=== PATIENT | male | born 1970 | race Caucasian/White ===

== ENCOUNTER 2024-10-11 03:15 | Inpatient (IN) ==
[2024-10-11 03:49] LABS: Hematocrit (blood only) 46.1 % (42.0-52.0); Hemoglobin 15.4 g/dl (14.0-18.0); Immature Granulocytes # (auto) 0.05 K/uL (0.01-0.20); Immature Granulocytes % (auto) 0.4 %; Mean Corpuscular Hemoglobin 32.4 pg (25.0-34.0); Mean Corpuscular Volume 96.8 fL (80.0-100.0); Platelet Count 424 K/uL (130-400); RDW Standard Deviation 44.7 fL (36.4-46.3); Red Blood Count 4.76 M/uL (4.70-6.10); White Blood Count 12.90 K/ul (4.8-10.8)
[2024-10-11] MEDS: OPTIRAY 320 100ml IV ONE (03:49)
--- NOTE | 2024-10-11 03:58 | Emergency Department Note ---
Impression & Plan Cholelithiasis with biliary obstruction, Cholecystitis ED Provider Note NAME: SERVANDO TOVAR AGE: 53 SEX: M : 1970 ARRIVES VIA: Walk-In INFORMANT: Patient, ED PROVIDER(S): Apollo Thompson MD CHIEF COMPLAINT: Epigastric/right upper quadrant pain HPI: This is a 53-year-old male presents for epigastric/right upper quadrant abdominal pain. Patient notes that this has been going on for about 1 week. He went his primary care doctor who ordered an ultrasound. This revealed hepatic steatosis without signs of cholecystitis. There was a distended gallbladder without signs of gallbladder wall thickening. Patient has had slight nausea and chills over the last 1 to 2 days. He reports no shortness of breath or chest pain. No diarrhea, urinary symptoms. Patient does note that symptoms are worse with food. ROS: See above HPI for pertinent positives & negatives. A total of 10 systems reviewed and were otherwise negative. PAST MEDICAL HISTORY: See Below PAST SURGICAL HISTORY: See Below FAMILY HISTORY: See Below SOCIAL HISTORY: See Below HOME MEDICATIONS: See Below ALLERGIES: See Below VITALS: See Below PHYSICAL EXAMINATION: General: resting comfortably in no acute distress Head: Normocephalic and atraumatic Eyes: Normal inspection, extraocular muscles intact Ear, nose, throat: Normal external exam Neck: Normal range of motion Respiratory: lungs clear to auscultation bilaterally Cardiovascular: Regular rate/rhythm, no murmur GI: soft, nontender, no guarding or rebound, negative Sylvester sign Extremities: nontender, moves all extremities Neuro: The patient awake and alert, appropriately conversive, no focal deficits, symmetric faces Skin: Warm, dry, and intact MEDICAL DECISION MAKING: This is a 53-year-old male present for epigastric right quadrant abdominal pain. Will do screening blood work. Patient already had negative ultrasound a few days ago. Will progress to CT Abdo/pelvis to assess further. Consider gastroenteritis, appendicitis, cholecystitis, diverticulitis. Overall patient was clinically well with reassuring vital signs and a nontender abdomen. - Leukocytosis to 12.9 noted. Otherwise there is significant abnormalities including elevated bilirubin to 5.6, significant transaminitis and elevated alk phos. -CT imaging shows signs of acute cholecystitis as well as minimal intrahepatic and extrahepatic biliary dilation as well as a possible tiny calcific focus seen in the pancreatic head along the CBD. Concern for choledocholithiasis -Patient started on Zosyn and kept n.p.o. -In context with patient's blood work, do have concern for choledocholithiasis. Discussed care with GI physician, Dr. John who states that oncoming GI physician, Dr. David, can do ERCP and patient could stay in the hospital here. Discussed with Dr. Carson, general surgery he was also comfortable with the admission here. - Discussed care with Dr. Palmer who for admission Differential diagnosis: See above Independent History obtained from: Diagnostics interpreted by me: ECG: None Cardiac Monitoring: An order was placed for continuous cardiac monitoring. The monitor shows a rate of 75 with sinus rhythm. Past Med/Surg History Problem List (Updated 10/11/24 @ 15:17 by Apollo Thompson MD) Cholelithiasis with biliary obstruction (Acute) Cholecystitis (Acute) Medical History (Updated 10/11/24 @ 15:17 by Apollo Thompson MD) Encounter for pre-operative examination Sleep apnea treated with continuous positive airway pressure (CPAP) Hypertension Anxiety and depression Surgical History H/O colonoscopy with polypectomy Social History Smoking Status: Former smoker Tobacco Type: Cigarettes Hx Alcohol Use: Yes Hx Substance Use: No Preferred Language: Malaysian Communication Ability: Effective Nursing Scheduler Required: No Beliefs That Will Affect Care: None Current Living Situation: Spouse Feels Safe at Home: Yes Allergies Allergies Allergy/AdvReac Type Severity Reaction Status Date / Time No Known Allergies Allergy Verified 10/11/24 13:32 Home Meds Home Medications Medication Instructions Recorded Confirmed atenolol 25 mg tablet 25 mg PO DAILY 10/11/24 10/11/24 sertraline 50 mg tablet (Zoloft) 50 mg PO DAILY 10/11/24 10/11/24 Results & Data (ED) Vital Signs Vital Signs - 24 hr 10/11/24 03:18 10/11/24 03:25 10/11/24 03:29 Temperature 36.8 C Temperature Source Temporal Artery Scan Pulse Rate 110 H 105 H Pulse Rate [Right Finger] Pulse Rhythm Regular Pulse Rhythm [Right Finger] Pulse Strength Normal Respiratory Rate 20 Respiratory Effort / Characteristics Non-Labored Spontaneous Respiratory Depth Normal Respiratory Pattern Regular Blood Pressure 133/87 Blood Pressure [Right Arm] Blood Pressure Mean 102 Blood Pressure Mean [Right Arm] Blood Pressure Position Sitting Blood Pressure Position [Right Arm] Pulse Oximetry 96 95 Oxygen Delivery Method Room Air Room Air Sepsis Recent Fever Within 48 Hours No Sepsis New/Unexplained Change in Mental Status No Sepsis Action Taken by Nursing No Action Required 10/11/24 03:52 10/11/24 05:16 10/11/24 06:39 Temperature Temperature Source Pulse Rate Pulse Rate [Right Finger] 88 71 70 Pulse Rhythm Pulse Rhythm [Right Finger] Regular Pulse Strength Respiratory Rate 16 18 18 Respiratory Effort / Characteristics Non-Labored Respiratory Depth Normal Respiratory Pattern Regular Blood Pressure Blood Pressure [Right Arm] 154/92 H 142/83 H 131/86 Blood Pressure Mean Blood Pressure Mean [Right Arm] 112 102 101 Blood Pressure Position Blood Pressure Position [Right Arm] Pulse Oximetry 95 95 95 Oxygen Delivery Method Room Air Room Air Room Air Sepsis Recent Fever Within 48 Hours Sepsis New/Unexplained Change in Mental Status Sepsis Action Taken by Nursing 10/11/24 08:27 Temperature 36.9 C Temperature Source Oral Pulse Rate Pulse Rate [Right Finger] 78 Pulse Rhythm Pulse Rhythm [Right Finger] Pulse Strength Respiratory Rate 20 Respiratory Effort / Characteristics Non-Labored Respiratory Depth Normal Respiratory Pattern Regular Blood Pressure Blood Pressure [Right Arm] 163/94 H Blood Pressure Mean Blood Pressure Mean [Right Arm] 117 Blood Pressure Position Blood Pressure Position [Right Arm] Sitting Pulse Oximetry 95 Oxygen Delivery Method Room Air Sepsis Recent Fever Within 48 Hours Sepsis New/Unexplained Change in Mental Status Sepsis Action Taken by Nursing Laboratory Data 10/11/24 03:25 10/11/24 03:25 Lab Results 10/11/24 10/11/24 Range/Units 03:25 03:38 WBC 12.90 H (4.8-10.8) K/ul RBC 4.76 (4.70-6.10) M/uL Hgb 15.4 (14.0-18.0) g/dl POC Hgb 15.3 (14.0-18.0) g/dl Hct 46.1 (42.0-52.0) % POC Hct 45 (42-52) % MCV 96.8 (80.0-100.0) fL MCH 32.4 (25.0-34.0) pg MCHC 33.4 (32.0-36.0) g/dL RDW Std Deviation 44.7 (36.4-46.3) fL RDW Coeff of Faustino 12.5 (11.5-14.5) % Plt Count 424 H (130-400) K/uL MPV 8.7 L (9.4-12.4) fL Immature Gran % (Auto) 0.4 % Neut % (Auto) 74.8 % Lymph % (Auto) 12.1 % Roberts % (Auto) 12.0 % Eos % (Auto) 0.2 % Baso % (Auto) 0.5 % Neut # (Auto) 9.65 H (1.40-6.50) K/uL Lymph # (Auto) 1.56 (1.20-3.40) K/uL Roberts # (Auto) 1.55 H (0.11-0.59) K/uL Eos # (Auto) 0.02 (0.00-0.50) K/uL Baso # (Auto) 0.07 (0.00-0.20) K/uL Immature Gran # (Auto) 0.05 (0.01-0.20) K/uL POC Sodium 140 (135-144) mmol/L Sodium 139 (136-145) mmol/L POC Potassium 3.3 (3.3-5.0) mmol/L Potassium 3.4 L (3.5-5.1) mmol/L POC Chloride 104 (101-112) mmol/L Chloride 101 (98-107) mmol/L Carbon Dioxide 27 (21-32) mmol/L POC Total CO2 23 L (24-31) mmol/L Anion Gap 11 (3-11) POC Anion Gap 17.0 (16-25) mmol/L POC BUN 4 L (7-18) mg/dl BUN 6 (6-23) mg/dl Creatinine 1.03 (0.6-1.4) mg/dl POC Creatinine 1.0 (0.6-1.3) mg/dl Est Cr Clr Drug Dosing 101.0 ml/min eGFR 86.32 BUN/Creatinine Ratio 5.8 L (10-20) Glucose 123 H (70-99(Fasting)) mg/dl POC Glucose (other) 123 H (70-99) mg/dl Calcium 9.4 (8.6-10.3) mg/dl POC Ioniz Calcium Rachana 1.14 (1.12-1.32) mmol/l Total Bilirubin 5.6 H (0.2-1.0) mg/dl Direct Bilirubin 3.8 H (0-0.2) mg/dl AST 211 H (13-39) U/L ALT 322 H (7-52) U/L Alkaline Phosphatase 204 H (34-104) U/L Troponin I High Sens 4.1 (0-20) pg/ml Total Protein 8.7 H (6.0-8.3) gm/dl Albumin 4.1 (3.4-5.0) gm/dl Globulin 4.6 H (2.5-4.0) gm/dl Albumin/Globulin Ratio 0.9 (0.9-2) Lipase 27 (11-82) U/L Administered Medications Atenolol (Atenolol 25 Mg Tablet) 25 mg PO DAILY [facility] Stop: 11/10/24 08:59 Last Admin: 10/11/24 09:41 Dose: 25 mg Documented By: driss Hydromorphone HCl (Hydromorphone Inj 0.5 Mg/0.5 Ml Syr) 0.5 mg IV Q4H PRN PRN Reason: Severe Pain (Scale 7, 8, 9,10) Stop: 10/25/24 08:59 Last Admin: 10/11/24 12:22 Dose: 0.5 mg Documented By: EMELINA Piperacillin Sod/Tazobactam Sod (Zosyn) 4.5 gm in 100 mls @ 25 mls/hr IV Q8H [facility]; Protocol Stop: 10/13/24 04:29 Last Admin: 10/11/24 12:15 Dose: 25 mls/hr Documented By: Infusion: 10/11/24 09:10 Dose: Infused Documented By: Admin: 10/11/24 05:10 Dose: 25 mls/hr Documented By: MARVA Sodium Chloride (Nss) 1,000 mls @ 125 mls/hr IV .Q8H [facility] Stop: 10/14/24 08:59 Last Admin: 10/11/24 09:00 Dose: 125 mls/hr Documented By: MAEVE Lactated Ringer's (Lr) 1,000 mls @ 15 mls/hr IV .Q24H KRANTHI Stop: 10/14/24 13:59 Last Infusion: 10/11/24 14:06 Dose: Infused Documented By: Admin: 10/11/24 13:55 Dose: 15 mls/hr Documented By: MG Sertraline HCl (Sertraline Hcl 50 Mg Tablet) 50 mg PO DAILY KRANTHI Stop: 11/10/24 08:59 Last Admin: 10/11/24 09:41 Dose: 50 mg Documented By: cad Discontinued Medications Potassium Chloride (K Mazin / Wtr) 10 meq in 100 mls @ 100 mls/hr IV Q1H KRANTHI Stop: 10/11/24 09:14 Last Infusion: 10/11/24 11:59 Dose: Infused Documented By: Admin: 10/11/24 10:16 Dose: 100 mls/hr Documented By: Infusion: 10/11/24 10:00 Dose: Infused Documented By: Admin: 10/11/24 09:00 Dose: 100 mls/hr Documented By: Infusion: 10/11/24 08:47 Dose: Infused Documented By: Admin: 10/11/24 07:47 Dose: 100 mls/hr Documented By: driss Indomethacin (Indomethacin 50 Mg Supp) 100 mg UT ONCE ONE Stop: 10/11/24 12:31 Last Admin: 10/11/24 14:28 Dose: 100 mg Documented By: DEBBIE Ioversol (Optiray 320 100ml) 100 ml IV ONCE ONE Stop: 10/11/24 03:50 Last Admin: 10/11/24 03:49 Dose: 93 ml Documented By: JOHNATHON Imaging Data Radiologist's Impression: Abdomen/Pelvis CT 10/11/24 03:25 EXAM: CT abd pelvis IV con only CLINICAL HISTORY: RUQ pain, cholecystitis vs appendicits TECHNIQUE: Contiguous axial images were obtained from the level of the diaphragm to the pubic symphysis with intravenous contrast. Coronal and sagittal reconstructions were likewise performed and indicated to increase the sensitivity for detecting clinically relevant pathology. If IV contrast material had not been administered, the likelihood of detecting abnormalities relevant to the patient's condition would have been substantially decreased. CT scan was performed according to ALARA (as low as reasonable achievable). COMPARISON: None FINDINGS: Few atelectatic bands are noted involving bilateral lung bases. The liver is normal in size and attenuation. No focal liver lesions are seen. There is minimal intrahepatic and extrahepatic biliary ductal dilatation. Hepatic vasculature is patent. The gallbladder is distended shows thickened edematous gallbladder wall (wall thickness measures 6-7 mm) and pericholecystic fat stranding. No obvious radio-opaque gallstones- ultrasound correlation is suggested. Tiny calcific focus seen in pancreatic head along common bile duct. The spleen, pancreas, and adrenal glands are unremarkable. The kidneys are normal in size and attenuation. There is no hydronephrosis or perinephric fat stranding. No renal calculi or renal masses are identified. The ureters are normal in caliber and no ureteral calculi are seen. The bladder is normal in contour. Pelvic viscera are unremarkable. No focal or diffuse bowel wall thickening or evidence of bowel obstruction is identified. The appendix is visualized in the right lower quadrant and appears within normal limits. Abdominal and pelvic vasculature is patent. No adenopathy or fluid collections are seen. No aggressive appearing osseous lesions are identified. IMPRESSION: 1. Gallbladder is distended shows thickened edematous gallbladder wall (wall thickness measures 6-7 mm) and pericholecystic fat stranding- suggestive of acute cholecystitis. Advised clinical correlation and ultrasound for further evaluation. 2. There is minimal intrahepatic and extrahepatic biliary ductal dilatation. Tiny calcific focus seen in pancreatic head along common bile duct. Advised MRCP correlation to confirm/rule out choledocholithiasis. 3. Hepatic steatosis Electronically signed by Neo Zelaya 10-11-2024 04:18 AM Discharge Plan Visit Data Chief Complaint: Abdominal Pain Stated Complaint: ABD AND BACK PAIN ED Provider: Apollo Thompson Discharge Problem: Cholelithiasis with biliary obstruction, Cholecystitis Patient Disposition: Admitted As Inpatient Condition: Fair Discharge Instructions Interventions: ED Discharge Assessment Last Done: 10/11/24 07:52
[2024-10-11 04:08] LABS: Alanine Aminotransferase 322.0 U/L (7-52); Albumin Globulin Ratio 0.9 (0.9-2); Alkaline Phosphatase 204.0 U/L (34-104); Anion Gap 11.0 (3-11); Bilirubin,Total 5.6 mg/dl (0.2-1.0); Blood Urea Nitrogen 6.0 mg/dl (6-23); Calcium 9.4 mg/dl (8.6-10.3); Carbon Dioxide 27.0 mmol/L (21-32); Chloride 101.0 mmol/L (98-107); Creatinine Clr Calc Pharmacy 101.0 ml/min; Globulin 4.6 gm/dl (2.5-4.0); Glucose 123.0 mg/dl (70-99(Fasting)); Lipase 27.0 U/L (11-82); Potassium 3.4 mmol/L (3.5-5.1); Sodium 139.0 mmol/L (136-145); Total Protein 8.7 gm/dl (6.0-8.3)
--- NOTE | 2024-10-11 04:18 | CT Scan Report ---
EXAM: CT abd pelvis IV con only CLINICAL HISTORY: RUQ pain, cholecystitis vs appendicits TECHNIQUE: Contiguous axial images were obtained from the level of the diaphragm to the pubic symphysis with intravenous contrast. Coronal and sagittal reconstructions were likewise performed and indicated to increase the sensitivity for detecting clinically relevant pathology. If IV contrast material had not been administered, the likelihood of detecting abnormalities relevant to the patient's condition would have been substantially decreased. CT scan was performed according to ALARA (as low as reasonable achievable). COMPARISON: None FINDINGS: Few atelectatic bands are noted involving bilateral lung bases. The liver is normal in size and attenuation. No focal liver lesions are seen. There is minimal intrahepatic and extrahepatic biliary ductal dilatation. Hepatic vasculature is patent. The gallbladder is distended shows thickened edematous gallbladder wall (wall thickness measures 6-7 mm) and pericholecystic fat stranding. No obvious radio-opaque gallstones- ultrasound correlation is suggested. Tiny calcific focus seen in pancreatic head along common bile duct. The spleen, pancreas, and adrenal glands are unremarkable. The kidneys are normal in size and attenuation. There is no hydronephrosis or perinephric fat stranding. No renal calculi or renal masses are identified. The ureters are normal in caliber and no ureteral calculi are seen. The bladder is normal in contour. Pelvic viscera are unremarkable. No focal or diffuse bowel wall thickening or evidence of bowel obstruction is identified. The appendix is visualized in the right lower quadrant and appears within normal limits. Abdominal and pelvic vasculature is patent. No adenopathy or fluid collections are seen. No aggressive appearing osseous lesions are identified. IMPRESSION: 1. Gallbladder is distended shows thickened edematous gallbladder wall (wall thickness measures 6-7 mm) and pericholecystic fat stranding- suggestive of acute cholecystitis. Advised clinical correlation and ultrasound for further evaluation. 2. There is minimal intrahepatic and extrahepatic biliary ductal dilatation. Tiny calcific focus seen in pancreatic head along common bile duct. Advised MRCP correlation to confirm/rule out choledocholithiasis. 3. Hepatic steatosis Electronically signed by Neo Zelaya 10-11-2024 04:18 AM
[2024-10-11] MEDS: PIPERACILLIN/TAZOBACTAM 4.5 GM/100 ML BAG IV SCH (05:10)
[2024-10-11 06:26] LABS: Appearance Urine Clear (Clear); Glucose Urine UA Negative (Negative)
[2024-10-11 06:40] LABS: Epithelial Cell Urine 0-2 /hpf (0-2)
[2024-10-11] MEDS: POTASSIUM CHLORIDE / WTR 10 MEQ/100 ML PLCT IV SCH (07:47)
--- NOTE | 2024-10-11 08:01 | History & Physical Report ---
Date of Service October 11, 2024 Assessment & Plan (1) Cholecystitis: Plan: 53-year-old male unassigned patient with past medical history significant for hypertension, depression comes with abdominal pain. Patient states having epigastric and right upper quadrant abdominal pain going on for last couple of days. Pain is radiating to the back. Associate with nausea. No vomiting. Had some loose stools. Denies any blood in the stools or black stools. Micturating okay. Thinks he had fevers. Denies any chest pain. Some shortness of breath when the pain is severe. Denies any headache. No runny nose or sore throat or cough. Resting comfortably and hemodynamics are okay currently. Cholecystitis Presents abdominal pain and elevated LFTs Total bili 5.6. Albumin 3.8. AST 211. ALT 322. Alkaline phos was 204 CT abdomen pelvis showing distended gallbladder and pericholecystic fat stranding suggestive of acute cholecystitis. Minimal intrahepatic and extrahepatic biliary ductal dilatation. Tiny calcific focus in pancreatic head along common bile duct. Advised MRCP to confirm or rule out choledocholithiasis N.p.o., IV fluids, IV Zosyn IV Dilaudid as needed GI and surgery consult for further recommendation Hypertension Continue atenolol Depression Continue Zoloft DVT prophylaxis SCDs Disposition Medical floor Full code. History of Present Illness Chief Complaint: Abdominal pain Primary Care Provider: Ellie Velazquez DO 53-year-old male unassigned patient with past medical history significant for hypertension, depression comes with abdominal pain. Patient states having epigastric and right upper quadrant abdominal pain going on for last couple of days. Pain is radiating to the back. Associate with nausea. No vomiting. Had some loose stools. Denies any blood in the stools or black stools. Micturating okay. Thinks he had fevers. Denies any chest pain. Some shortness of breath when the pain is severe. Denies any headache. No runny nose or sore throat or cough. Resting comfortably and hemodynamics are okay currently. Past medical history. As mentioned above. Past surgical history. Denies any surgeries. Social history. No smoking. No alcohol use. No drug use. Family history. Denies any family history. Home Medications Medication Instructions Recorded Confirmed Type atenolol 25 mg tablet 25 mg PO DAILY 10/11/24 10/11/24 History sertraline 50 mg tablet (Zoloft) 50 mg PO DAILY 10/11/24 10/11/24 History Past Med/Surg History Problem List (Updated 10/11/24 @ 07:59 by Adolfo Palmer MD) Cholecystitis Social History Smoking Status: Never smoker Tobacco Type: Cigarettes Feels Safe at Home: Yes Review of Systems Review of Systems: All systems reviewed & are unremarkable except as noted in HPI & below Physical Exam Physical Exam: General- Not in distress Head- atraumatic Eyes- PERRL. ENT- oropharynx clear Neck- supple, no JVD. Lungs- clear to auscultation no wheezing or crackles Heart- regular rhythm; no murmur, no gallop. Abdomen- normal bowel sounds, soft, epigastric and RUQ tenderness present, no guarding or rigidity, no distension Extremities- no pretibial edema, no erythema seen Neuro- alert, oriented PERRL, EOMI; no facial palsy; no dysarthria; moves extremities Results & Data Results & Data Vital Signs (Past 12 Hours) Vital Signs Temp Pulse Pulse Resp BP BP Pulse Ox 10/11/24 06:39 70 18 131/86 95 10/11/24 05:16 71 18 142/83 H 95 10/11/24 03:52 88 16 154/92 H 95 10/11/24 03:29 105 H 10/11/24 03:25 95 10/11/24 03:18 36.8 C 110 H 20 133/87 96 O2 Del Method 10/11/24 06:39 Room Air 10/11/24 05:16 Room Air 10/11/24 03:52 Room Air 10/11/24 03:29 10/11/24 03:25 Room Air 10/11/24 03:18 Room Air Diagnostic Findings Laboratory Results WBC 12.90 K/ul (4.8-10.8) H 10/11/24 03:25 RBC 4.76 M/uL (4.70-6.10) 10/11/24 03:25 Hgb 15.4 g/dl (14.0-18.0) 10/11/24 03:25 POC Hgb 15.3 g/dl (14.0-18.0) 10/11/24 03:38 Hct 46.1 % (42.0-52.0) 10/11/24 03:25 POC Hct 45 % (42-52) 10/11/24 03:38 MCV 96.8 fL (80.0-100.0) 10/11/24 03:25 MCH 32.4 pg (25.0-34.0) 10/11/24 03:25 MCHC 33.4 g/dL (32.0-36.0) 10/11/24 03:25 RDW Std Deviation 44.7 fL (36.4-46.3) 10/11/24 03:25 RDW Coeff of Faustino 12.5 % (11.5-14.5) 10/11/24 03:25 Plt Count 424 K/uL (130-400) H 10/11/24 03:25 MPV 8.7 fL (9.4-12.4) L 10/11/24 03:25 Immature Gran % (Auto) 0.4 % 10/11/24 03:25 Neut % (Auto) 74.8 % 10/11/24 03:25 Lymph % (Auto) 12.1 % 10/11/24 03:25 [place] % (Auto) 12.0 % 10/11/24 03:25 Eos % (Auto) 0.2 % 10/11/24 03:25 Baso % (Auto) 0.5 % 10/11/24 03:25 Neut # (Auto) 9.65 K/uL (1.40-6.50) H 10/11/24 03:25 Lymph # (Auto) 1.56 K/uL (1.20-3.40) 10/11/24 03:25 [place] # (Auto) 1.55 K/uL (0.11-0.59) H 10/11/24 03:25 Eos # (Auto) 0.02 K/uL (0.00-0.50) 10/11/24 03:25 Baso # (Auto) 0.07 K/uL (0.00-0.20) 10/11/24 03:25 Immature Gran # (Auto) 0.05 K/uL (0.01-0.20) 10/11/24 03:25 POC Sodium 140 mmol/L (135-144) 10/11/24 03:38 Sodium 139 mmol/L (136-145) 10/11/24 03:25 POC Potassium 3.3 mmol/L (3.3-5.0) 10/11/24 03:38 Potassium 3.4 mmol/L (3.5-5.1) L 10/11/24 03:25 POC Chloride 104 mmol/L (101-112) 10/11/24 03:38 Chloride 101 mmol/L (98-107) 10/11/24 03:25 Carbon Dioxide 27 mmol/L (21-32) 10/11/24 03:25 POC Total CO2 23 mmol/L (24-31) L 10/11/24 03:38 Anion Gap 11 (3-11) 10/11/24 03:25 POC Anion Gap 17.0 mmol/L (16-25) 10/11/24 03:38 POC BUN 4 mg/dl (7-18) L 10/11/24 03:38 BUN 6 mg/dl (6-23) 10/11/24 03:25 Creatinine 1.03 mg/dl (0.6-1.4) 10/11/24 03:25 POC Creatinine 1.0 mg/dl (0.6-1.3) 10/11/24 03:38 Est Cr Clr Drug Dosing 101.0 ml/min 10/11/24 03:25 eGFR 86.32 10/11/24 03:25 BUN/Creatinine Ratio 5.8 (10-20) L 10/11/24 03:25 Glucose 123 mg/dl (70-99(Fasting)) H 10/11/24 03:25 POC Glucose (other) 123 mg/dl (70-99) H 10/11/24 03:38 Calcium 9.4 mg/dl (8.6-10.3) 10/11/24 03:25 POC Ioniz Calcium Rachana 1.14 mmol/l (1.12-1.32) 10/11/24 03:38 Total Bilirubin 5.6 mg/dl (0.2-1.0) H 10/11/24 03:25 Direct Bilirubin 3.8 mg/dl (0-0.2) H 10/11/24 03:25 AST 211 U/L (13-39) H 10/11/24 03:25 ALT 322 U/L (7-52) H 08/20/25 03:25 Alkaline Phosphatase 204 U/L (34-104) H 10/11/24 03:25 Troponin I High Sens 4.1 pg/ml (0-20) 10/11/24 03:25 Total Protein 8.7 gm/dl (6.0-8.3) H 10/11/24 03:25 Albumin 4.1 gm/dl (3.4-5.0) 10/11/24 03:25 Globulin 4.6 gm/dl (2.5-4.0) H 10/11/24 03:25 Albumin/Globulin Ratio 0.9 (0.9-2) 10/11/24 03:25 Lipase 27 U/L (11-82) 10/11/24 03:25 Urine Color Yellow 10/11/24 Unknown Urine Appearance Clear (Clear) 10/11/24 Unknown Urine pH 7.0 (4.5-7.5) 10/11/24 Unknown Ur Specific [place] 1.010 (1.000-1.030) 10/11/24 Unknown Urine Protein 1+ (Negative) H 10/11/24 Unknown Urine Glucose (UA) Negative (Negative) 10/11/24 Unknown Urine Ketones Negative (Negative) 10/11/24 Unknown Urine Blood Trace-intact (Negative) H 10/11/24 Unknown Urine Nitrite Negative (Negative) 10/11/24 Unknown Urine Bilirubin 2+ (Negative) H 10/11/24 Unknown Urine Urobilinogen Negative (Negative) 10/11/24 Unknown Ur Leukocyte Esterase Negative (Negative) 10/11/24 Unknown Urine RBC 0-2 /hpf (0-2) 10/11/24 Unknown Urine WBC 0-5 /hpf (0-5) 10/11/24 Unknown Ur Epithelial Cells 0-2 /hpf (0-2) 10/11/24 Unknown Urine Bacteria None Seen (None Seen) 10/11/24 Unknown Urine Mucus Present (None Prsent) A 10/11/24 Unknown Urine Comment 10/11/24 Unknown Impressions Abdomen/Pelvis CT 10/11/24 03:25 EXAM: CT abd pelvis IV con only CLINICAL HISTORY: RUQ pain, cholecystitis vs appendicits TECHNIQUE: Contiguous axial images were obtained from the level of the diaphragm to the pubic symphysis with intravenous contrast. Coronal and sagittal reconstructions were likewise performed and indicated to increase the sensitivity for detecting clinically relevant pathology. If IV contrast material had not been administered, the likelihood of detecting abnormalities relevant to the patient's condition would have been substantially decreased. CT scan was performed according to ALARA (as low as reasonable achievable). COMPARISON: None FINDINGS: Few atelectatic bands are noted involving bilateral lung bases. The liver is normal in size and attenuation. No focal liver lesions are seen. There is minimal intrahepatic and extrahepatic biliary ductal dilatation. Hepatic vasculature is patent. The gallbladder is distended shows thickened edematous gallbladder wall (wall thickness measures 6-7 mm) and pericholecystic fat stranding. No obvious radio-opaque gallstones- ultrasound correlation is suggested. Tiny calcific focus seen in pancreatic head along common bile duct. The spleen, pancreas, and adrenal glands are unremarkable. The kidneys are normal in size and attenuation. There is no hydronephrosis or perinephric fat stranding. No renal calculi or renal masses are identified. The ureters are normal in caliber and no ureteral calculi are seen. The bladder is normal in contour. Pelvic viscera are unremarkable. No focal or diffuse bowel wall thickening or evidence of bowel obstruction is identified. The appendix is visualized in the right lower quadrant and appears within normal limits. Abdominal and pelvic vasculature is patent. No adenopathy or fluid collections are seen. No aggressive appearing osseous lesions are identified. IMPRESSION: 1. Gallbladder is distended shows thickened edematous gallbladder wall (wall thickness measures 6-7 mm) and pericholecystic fat stranding- suggestive of acute cholecystitis. Advised clinical correlation and ultrasound for further evaluation. 2. There is minimal intrahepatic and extrahepatic biliary ductal dilatation. Tiny calcific focus seen in pancreatic head along common bile duct. Advised MRCP correlation to confirm/rule out choledocholithiasis. 3. Hepatic steatosis Electronically signed by Neo Zelaya 10-11-2024 04:18 AM Code Status & VTE Plan VTE Prophylaxis Plan VTE Prophylaxis will be ordered: Yes
--- NOTE | 2024-10-11 08:47 | Surgery Consultation ---
Date of Consultation October 11, 2024 Assessment & Plan (1) Cholelithiasis with biliary obstruction: IVF IV bax GI consult for ERCP with CBD stone and elevated LFTs eventual lap rosie History of Present Illness Attending Physician: Damian Delacruz MD History of Present Illness This is a 53YO with epigastric and right upper quadrant abdominal pain that radiates to his back. It began a few days ago but is improved in the emergency department. He has had nausea but no vomiting. H has had subjective fevers and some loose stools. CT scan shows signs of cholecystitis and CBD stones. LFTs elevated. Home Medications Medication Instructions Recorded Confirmed Type atenolol 25 mg tablet 25 mg PO DAILY 10/11/24 10/11/24 History sertraline 50 mg tablet (Zoloft) 50 mg PO DAILY 10/11/24 10/11/24 History Patient History Social History Smoking Status: Never smoker Tobacco Type: Cigarettes Feels Safe at Home: Yes Review of Systems Constitutional: + fever and + anorexia; no chills Eyes: no problem reported Ear, Nose, Mouth, Throat: no problem reported Respiratory: + dyspnea; no cough Cardiovascular: no chest pain Gastrointestinal: + abdominal pain, + nausea and + change in bowel habits; no vomiting Genitourinary: no dysuria Musculoskeletal: + back pain Integumentary: no problem reported Neurologic: no localized weakness and no generalized weakness Psychiatric: no behavioral changes Hematologic / Lymphatic: no easy bleeding and no easy bruising Physical Exam Constitutional: WD/WN, vitals as above Eyes: + scleral abnormality ENMT: external ear and nose normal, oropharynx normal Neck: trachea midline Respiratory: normal respiratory effort, lungs clear to auscultation Cardiovascular: RRR, no murmur, no edema Gastrointestinal (Abdomen): Inspection/Auscultation: abdomen normal to inspection and normal bowel sounds; abdomen not distended P ercussion/Palpation: + abdomen tender and abdomen soft; no guarding and abdomen not rigid Musculoskeletal: Head/Neck/Chest: normocephalic and head atraumatic Skin: no rashes, warm and dry Psychiatric: Orientation: alert Results & Data Vital Signs (Past 12 Hours) Vital Signs Temp Pulse Pulse Resp BP BP Pulse Ox 10/11/24 08:27 78 20 95 10/11/24 06:39 70 18 131/86 95 10/11/24 05:16 71 18 142/83 H 95 10/11/24 03:52 88 16 154/92 H 95 10/11/24 03:29 105 H 10/11/24 03:25 95 10/11/24 03:18 36.8 C 110 H 20 133/87 96 O2 Del Method 10/11/24 08:27 Room Air 10/11/24 06:39 Room Air 10/11/24 05:16 Room Air 10/11/24 03:52 Room Air 10/11/24 03:29 10/11/24 03:25 Room Air 10/11/24 03:18 Room Air Diagnostic Findings EXAM: CT abd pelvis IV con only CLINICAL HISTORY: RUQ pain, cholecystitis vs appendicits TECHNIQUE: Contiguous axial images were obtained from the level of the diaphragm to the pubic symphysis with intravenous contrast. Coronal and sagittal reconstructions were likewise performed and indicated to increase the sensitivity for detecting clinically relevant pathology. If IV contrast material had not been administered, the likelihood of detecting abnormalities relevant to the patient's condition would have been substantially decreased. CT scan was performed according to ALARA (as low as reasonable achievable). COMPARISON: None FINDINGS: Few atelectatic bands are noted involving bilateral lung bases. The liver is normal in size and attenuation. No focal liver lesions are seen. There is minimal intrahepatic and extrahepatic biliary ductal dilatation. Hepatic vasculature is patent. The gallbladder is distended shows thickened edematous gallbladder wall (wall thickness measures 6-7 mm) and pericholecystic fat stranding. No obvious radio-opaque gallstones- ultrasound correlation is suggested. Tiny calcific focus seen in pancreatic head along common bile duct. The spleen, pancreas, and adrenal glands are unremarkable. The kidneys are normal in size and attenuation. There is no hydronephrosis or perinephric fat stranding. No renal calculi or renal masses are identified. The ureters are normal in caliber and no ureteral calculi are seen. The bladder is normal in contour. Pelvic viscera are unremarkable. No focal or diffuse bowel wall thickening or evidence of bowel obstruction is identified. The appendix is visualized in the right lower quadrant and appears within normal limits. Abdominal and pelvic vasculature is patent. No adenopathy or fluid collections are seen. No aggressive appearing osseous lesions are identified. IMPRESSION: 1. Gallbladder is distended shows thickened edematous gallbladder wall (wall thickness measures 6-7 mm) and pericholecystic fat stranding- suggestive of acute cholecystitis. Advised clinical correlation and ultrasound for further evaluation. 2. There is minimal intrahepatic and extrahepatic biliary ductal dilatation. Tiny calcific focus seen in pancreatic head along common bile duct. Advised MRCP correlation to confirm/rule out choledocholithiasis. 3. Hepatic steatosis
[2024-10-11] MEDS ORDERED: HYDROmorphone INJ 0.5 MG/0.5 ML SYR IV PRN (09:00)
[2024-10-11] MEDS: SODIUM CHLORIDE 0.9% 1,000 ML IV SCH (09:00)
--- NOTE | 2024-10-11 09:26 | Hospitalist Progress Note ---
Date of Service October 11, 2024 Assessment & Plan (1) Cholecystitis: Plan: 53-year-old male unassigned patient with past medical history significant for hypertension, depression comes with abdominal pain. Patient states having epigastric and right upper quadrant abdominal pain going on for last couple of days. Pain is radiating to the back. Associate with nausea. No vomiting. Had some loose stools. Denies any blood in the stools or black stools. Micturating okay. Thinks he had fevers. Denies any chest pain. Some shortness of breath when the pain is severe. Denies any headache. No runny nose or sore throat or cough. Resting comfortably and hemodynamics are okay currently. Acute cholecystitis Choledocholithiasis with biliary obstruction Hepatic steatosis --CT ABD:Gallbladder is distended shows thickened edematous gallbladder wall (wall thickness measures 6-7 mm) and pericholecystic fat stranding- suggestive of acute cholecystitis. Advised clinical correlation and ultrasound for further evaluation. There is minimal intrahepatic and extrahepatic biliary ductal dilatation. Tiny calcific focus seen in pancreatic head along common bile duct. Advised MRCP correlation to confirm/rule out choledocholithiasis. Hepatic steatosis --MRCP:4 mm filling defect within the mid common bile duct which corresponds to calcified density on CT. This represents a small common bile duct calculus. No additional common bile duct calculi. Mild prominence of intrahepatic bile ducts. Normal caliber common bile duct. Findings suggestive of acute cholecystitis. -- Blood cultures pending -- Continue IV fluids, IV Zosyn --Monitor LFTs, avoid hepatotoxic agents as able --Will need ERCP and eventually lap rosie --Appreciate GI, surgery input Hypertension BP elevated likely situational Continue atenolol IV hydralazine as needed Monitor blood pressure Depression Continue Zoloft Hyperglycemia Check HbA1c Hypokalemia Replete electrolytes as needed Monitor DVT prophylaxis SCDs Re: procedure CODE STATUS Full code Disposition Expect to discharge home when stable Admission and Anticipated Discharge Date Admission Date: October 11, 2024 Subjective Patient is seen and examined at bedside Denies any significant abdominal pain today Also denies any nausea, vomiting, chest pain, dyspnea Family at bedside No other complaints Review of Systems Review of Systems: All systems reviewed & are unremarkable except as noted in Subjective Physical Exam Physical Exam: Physical Exam: Vitals signs as noted above General Appearance:Moderately built and nourished, no apparent distress Head: normocephalic, Atraumatic Eyes: normal inspection, EOMI Neck: supple, Trachea midline Respiratory/Chest: Normal breath sounds, CTA, No accessory muscle use Cardiovascular: S1, S2, No murmur Abdomen/GI:Soft, +tender, Bowel sounds present Extremities/Musculoskeletal:normal inspection, no edema Neurologic/Psych:AAOX3, grossly no focal neurological deficits Skin: normal color, warm Results & Data Results & Data Vital Signs (Past 12 Hours) Vital Signs Temp Pulse Pulse Resp BP BP Pulse Ox 10/11/24 09:08 72 20 176/117 H 95 10/11/24 08:27 36.9 C 78 20 163/94 H 95 10/11/24 06:39 70 18 131/86 95 10/11/24 05:16 71 18 142/83 H 95 10/11/24 03:52 88 16 154/92 H 95 10/11/24 03:29 105 H 10/11/24 03:25 95 10/11/24 03:18 36.8 C 110 H 20 133/87 96 O2 Del Method 10/11/24 09:08 Room Air 10/11/24 08:27 Room Air 10/11/24 06:39 Room Air 10/11/24 05:16 Room Air 10/11/24 03:52 Room Air 10/11/24 03:29 10/11/24 03:25 Room Air 10/11/24 03:18 Room Air Laboratory Results Short CBC 10/11/24 Range/Units 03:25 WBC 12.90 H (4.8-10.8) K/ul Hgb 15.4 (14.0-18.0) g/dl Hct 46.1 (42.0-52.0) % Plt Count 424 H (130-400) K/uL BMP 10/11/24 03:25 Sodium 139 Potassium 3.4 L Chloride 101 Carbon Dioxide 27 BUN 6 Creatinine 1.03 Glucose 123 H Calcium 9.4 Liver Function 10/11/24 Range/Units 03:25 Total Bilirubin 5.6 H (0.2-1.0) mg/dl Direct Bilirubin 3.8 H (0-0.2) mg/dl AST 211 H (13-39) U/L ALT 322 H (7-52) U/L Alkaline Phosphatase 204 H (34-104) U/L Albumin 4.1 (3.4-5.0) gm/dl Urine 10/11/24 Range/Units Unknown Urine Color Yellow Urine Appearance Clear (Clear) Urine pH 7.0 (4.5-7.5) Ur Specific [place] 1.010 (1.000-1.030) Urine Protein 1+ H (Negative) Urine Glucose (UA) Negative (Negative)
[2024-10-11] MEDS: SERTRALINE HCL 50 MG TABLET PO SCH (09:41)
[2024-10-11] MEDS: ATENOLOL 25 MG TABLET PO SCH (09:41)
--- NOTE | 2024-10-11 09:58 | Gastrointestinal Consultation ---
Date of Consultation October 11, 2024 Assessment & Plan (1) Cholelithiasis with biliary obstruction: Probable choledocholithiasis. -Obtain MRCP for further evaluation. -Pending results, may need to proceed with an ERCP this afternoon. Further recommendations pending MRCP results. Discussed with patient and at bedside. They are agreeable to the paln of care. -Continue to monitor LFTs daily. -Surgery following. -Pain control per primary team. Supervising Physician Co-Signing Physician Notes Jaundice dilatation 4 mm stone in the common bile duct. No pancreatitis. Risk benefits of procedure discussed. These include bleeding perforation and pancreatitis. Informed consent obtained. IA indocid for pancreatitis prophylaxis. Patient has been given Zosyn IV. ERCP today History of Present Illness Reason for Consultation: Choledocholithiasis? Attending Physician: Damian Delacruz MD History of Present Illness Patient is a 53 yo male who presented to the hospital with worsening epigastric/back pain. He notes that for the past several months he had been having worsening abdominal pain. He saw his PCP and notes that she felt it was related to his gallbladder. He had an abdominal US at [facility] that he shares with me on his phone that indicated distention of the gallbladder with gallbladder wall thickening. No stones or ductal dilation were noted on that study. I do not have a copy of his outpatient labs but he and his note that they were unremarkable. He notes that the pain acutely worsened and he presented to the ED. His notes that she also felt that he was yellow. Here in the ED he had laboratory studies that indicated a T bili of 5.6, D bili of 3.8, AST 211, ALT 322, Alk phos 204, Lipase 27. CT abdomen/pelvis indicated: 1. Gallbladder is distended shows thickened edematous gallbladder wall (wall thickness measures 6-7 mm) and pericholecystic fat stranding- suggestive of acute cholecystitis. Advised clinical correlation and ultrasound for further evaluation. 2. There is minimal intrahepatic and extrahepatic biliary ductal dilatation. Tiny calcific focus seen in pancreatic head along common bile duct. Advised MRCP correlation to confirm/rule out choledocholithiasis. 3. Hepatic steatosis He denies a family history of gallbladder disease or GI abnormalities. No history of abdominal surgeries. He notes a history of acid reflux, but has not struggled with this for some time. He notes ongoing 6/10 abdominal pain in the epigastric region with radiation through his back. He offers no other complaints at present. He has seen general surgery who plan for eventual lap rosie. Allergies Allergy/AdvReac Type Severity Reaction Status Date / Time No Known Allergies Allergy Verified 10/11/24 13:32 Home Medications Medication Instructions Recorded Confirmed Type atenolol 25 mg tablet 25 mg PO DAILY 10/11/24 10/11/24 History sertraline 50 mg tablet (Zoloft) 50 mg PO DAILY 10/11/24 10/11/24 History Patient History Medical History (Updated 10/11/24 @ 13:54 by Noah De La Torre MD) Encounter for pre-operative examination Sleep apnea treated with continuous positive airway pressure (CPAP) Hypertension Anxiety and depression Surgical History H/O colonoscopy with polypectomy Social History Smoking Status: Former smoker Tobacco Type: Cigarettes Hx Alcohol Use: Yes Hx Substance Use: No Preferred Language: [place] Communication Ability: Effective Lcac Radar Operator/Navigator Required: No Beliefs That Will Affect Care: None Current Living Situation: Spouse Feels Safe at Home: Yes Review of Systems Constitutional: no fever and no chills Respiratory: no cough and no dyspnea Cardiovascular: no chest pain Gastrointestinal: + abdominal pain Integumentary: + yellowing of the skin Psychiatric: no problem reported Physical Exam Constitutional: well developed Respiratory: normal respiratory effort Gastrointestinal (Abdomen): Percussion/Palpation: + abdomen tender and abdomen soft Skin: + jaundice Psychiatric: Orientation: alert and oriented x 3 Results & Data Vital Signs (Past 12 Hours) Vital Signs Temp Pulse Pulse Resp BP BP Pulse Ox 10/11/24 09:08 72 20 176/117 H 95 10/11/24 08:27 36.9 C 78 20 163/94 H 95 10/11/24 06:39 70 18 131/86 95 10/11/24 05:16 71 18 142/83 H 95 10/11/24 03:52 88 16 154/92 H 95 10/11/24 03:29 105 H 10/11/24 03:25 95 10/11/24 03:18 36.8 C 110 H 20 133/87 96 O2 Del Method 10/11/24 09:08 Room Air 10/11/24 08:27 Room Air 10/11/24 06:39 Room Air 10/11/24 05:16 Room Air 10/11/24 03:52 Room Air 10/11/24 03:29 10/11/24 03:25 Room Air 10/11/24 03:18 Room Air PG Care Time/CCT Total # of Minutes Spent Total Time Spent with Patient: Total time spent is greater than 50% in coordination of care (as documented) at patient's floor/unit and/or counseling patient: Coding Level of Care Code 96822 IN/OBS CONSULT LVL 4,60M Diagnoses Cholelithiasis with biliary obstruction K80.21
--- NOTE | 2024-10-11 11:51 | Magnetic Resonance Report ---
MRCP CLINICAL HISTORY: Right upper quadrant pain. Evaluate for choledocholithiasis. TECHNIQUE: Utilizing a 3 Radha magnet and dedicated coil, multiplanar, multiecho imaging of the upper abdomen was performed utilizing heavily T2 weighted pulsing sequences without IV contrast. COMPARISON STUDY: CT of the abdomen and pelvis performed earlier today. FINDINGS: The gallbladder is mildly distended. Gallbladder wall thickening with adjacent inflammation is present. There may be minimal sludge within the gallbladder. No definite gallstones are identifie d. There is no biliary ductal dilatation. Intrahepatic bile ducts are prominent. A 4 mm filling defec t within the mid common bile duct corresponds to the calcified density on CT performed earlier today. This represents a calcified stone within the mid common bile duct. No additional common bile duct ca lculi are identified. There is no biliary ductal dilatation. No pancreatic ductal dilatation is prese nt. A few cystic pancreatic lesions measuring up to 4 mm favor side branch IPMNs. IMPRESSION: 1. 4 mm filling defect within the mid common bile duct which corresponds to calcified density on CT. This represents a small common bile duct calculus. No additional common bile duct calculi. Mild promi nence of intrahepatic bile ducts. Normal caliber common bile duct. 2. Findings suggestive of acute cholecystitis. ACT 112: Negative or not required by law. Electronically signed by: Aidan Montes M.D. 10/11/2024 11:48 AM
[2024-10-11] MEDS: HYDROmorphone INJ 0.5 MG/0.5 ML SYR IV PRN (12:22)
[2024-10-11] MEDS ORDERED: PROMETHAZINE HCL 6.25 MG in SODIUM CHLORIDE 0.9% 50 ML IV PRN (13:43)
[2024-10-11] MEDS ORDERED: ONDANSETRON INJ 2 MG/ML 2 ML VIAL IV PRN (13:43)
[2024-10-11] MEDS ORDERED: HYDROmorphone INJ 1 MG/ML SYRINGE IV PRN (13:43)
[2024-10-11] MEDS ORDERED: ATROPINE SULFATE 0.1 MG/ML 10ML SYR IV PRN (13:43)
--- NOTE | 2024-10-11 13:54 | Anesthesiology Consultation ---
Date of Service October 11, 2024 Assessment & Plan (1) Encounter for pre-operative examination: Chart Review Chart Review: Acceptable Risk for Surgery and Patient NOT seen in Pre Admission Testing Consults Requested none History Surgery Operation Date: 10/11/24 09:20 Proposed Procedures p Endoscopic Retrograde Cholangiopancreatogram - Rudolph David MD Height/Weight Height: 5 ft 11 in Weight: 104.8 kg Allergies Allergy/AdvReac Type Severity Reaction Status Date / Time No Known Allergies Allergy Verified 10/11/24 13:32 Medications Home Medications Medication Instructions Recorded Confirmed Last Taken atenolol 25 mg tablet 25 mg PO DAILY 10/11/24 10/11/24 Unknown sertraline 50 mg tablet (Zoloft) 50 mg PO DAILY 10/11/24 10/11/24 Unknown Active Medications Generic Name Dose Route Start Last Admin Trade Name Freq PRN Reason Stop Dose Admin Atenolol 25 mg 10/11/24 09:00 10/11/24 09:41 Atenolol 25 Mg Tablet PO 11/10/24 08:59 25 mg DAILY KRATNHI Administration Hydromorphone HCl 0.5 mg 10/11/24 09:00 10/11/24 12:22 Hydromorphone Inj 0.5 Mg/0.5 Ml Syr IV 10/25/24 08:59 0.5 mg Q4H PRN Administration Severe Pain (Scale 7, 8, 9,10) Piperacillin Sod/Tazobactam Sod 4.5 gm in 100 mls @ 25 mls/hr 10/11/24 04:30 10/11/24 12:15 Zosyn IV 10/13/24 04:29 25 mls/hr Q8H KRANTHI Administration Protocol Sodium Chloride 1,000 mls @ 125 mls/hr 10/11/24 09:00 10/11/24 09:00 Nss IV 10/14/24 08:59 125 mls/hr .Q8H KRANTHI Administration Sertraline HCl 50 mg 10/11/24 09:00 10/11/24 09:41 Sertraline Hcl 50 Mg Tablet PO 11/10/24 08:59 50 mg DAILY KRANTHI Administration NPO Date Last Intake of Fluids: 10/10/24 Time Last Intake of Fluids: 22:30 Last Intake of Fluids Comment: today sip with pills around 929 Date Last Intake of Solids: 10/10/24 Time Last Intake of Solids: 18:00 Past Medical History Medical History (Updated 10/11/24 @ 13:54 by Noah De La Torre MD) Encounter for pre-operative examination Sleep apnea treated with continuous positive airway pressure (CPAP) Hypertension Anxiety and depression Exercise / Class Metabolic Activity II 4-5 Yardwork/Stairs/Walk up hill Past Surgical History Surgical History H/O colonoscopy with polypectomy Social History Smoking Status: Former smoker Hx Alcohol Use: Yes alcohol intake frequency: a few times a month Hx Substance Use: No Physical Exam Vital Signs Last Vital Signs Temp 36.8 C 10/11/24 13:32 Pulse 75 10/11/24 13:32 Resp 20 10/11/24 13:32 BP 136/91 10/11/24 13:32 Pulse Ox 95 10/11/24 13:32 O2 Del Method Room Air 10/11/24 13:32 Testing Laboratory Results 10/11/24 03:25 10/11/24 03:25 Urine Color Yellow 10/11/24 Unknown Urine Appearance Clear (Clear) 10/11/24 Unknown Urine pH 7.0 (4.5-7.5) 10/11/24 Unknown Ur Specific [place] 1.010 (1.000-1.030) 10/11/24 Unknown Urine Protein 1+ (Negative) H 10/11/24 Unknown Urine Glucose (UA) Negative (Negative) 10/11/24 Unknown Urine Ketones Negative (Negative) 10/11/24 Unknown Urine Nitrite Negative (Negative) 10/11/24 Unknown Ur Leukocyte Esterase Negative (Negative) 10/11/24 Unknown Urine RBC 0-2 /hpf (0-2) 10/11/24 Unknown Urine WBC 0-5 /hpf (0-5) 10/11/24 Unknown Ur Epithelial Cells 0-2 /hpf (0-2) 10/11/24 Unknown 10/11/24 03:38 POC Glucose (other) 123 H
[2024-10-11] MEDS: LACTATED RINGER'S 1,000 ML IV SCH (13:55)
[2024-10-11] MEDS ORDERED: ROCURONIUM BROMIDE 10 MG/ML 5 ML VIAL IV ONE (14:09)
[2024-10-11] MEDS ORDERED: MIDAZOLAM HCL 1 MG/ML 2ML VIAL ONE (14:09)
[2024-10-11] MEDS ORDERED: SUGAMMADEX SODIUM 200 MG/2 ML VIAL IV ONE (14:09)
[2024-10-11] MEDS ORDERED: ONDANSETRON INJ 2 MG/ML 2 ML VIAL ONE (14:09)
[2024-10-11] MEDS ORDERED: PROPOFOL IV EMULSION 10 MG/ML 20 ML VIAL IV ONE (14:09)
[2024-10-11] MEDS ORDERED: PHENYLEPHRINE 100MCG/ML 5ML SYR ONE (14:20)
[2024-10-11] MEDS: INDOMETHACIN 50 MG SUPP PR ONE (14:28)
--- NOTE | 2024-10-11 15:06 | Communication Note ---
Date of Service: October 11, 2024 ERCP Small ampullary orifice. Initial wedge injection filling of the common bile duct with distal filling defect. Bili sphincterotomy undertaken. Distal defect identified. Sphincterotomy undertaken. This was limited by the small ampulla orifice. To facilitate stone extraction dilation with an 8 mm balloon undertaken. Excellent drainage post. Multiple sweeps of the bile duct undertaken with with extraction of debris fluid no definite pus. Duct appeared to be clear post persistent filling defect identified.
--- NOTE | 2024-10-11 15:10 | GI REPORT ---
[facility] Patient: SERVANDO TOVAR : 1970 Sex at : Male Age: 53 Years Procedure: ERCP Date: 10/11/2024 Attending Physician: Rudolph David MD Referring MD: Referred Self Indications: - Bile duct stone(s) Medications: - Indomethacin 100 mg [place] Complications: - No immediate complications. Estimated Blood Loss: - Estimated blood loss was minimal. Procedure: - The ercp scope was introduced through the mouth and advanced to the duodenum and used to inject contrast into the bile duct. - The ERCP was accomplished without difficulty. - The patient tolerated the procedure well. Findings: - The professional sports scout film was normal. - The bile duct was deeply cannulated. Contrast was injected. I personally interpreted the bile duct images. Image quality was adequate. The lower third of the main duct contained filling defect(s) thought to be a stone. Choledocholithiasis was found in a mildly dilated duct. Stone thought to be 5 to 6 mm. A biliary sphincterotomy undertaken in the 11 o'clock position. This could only be extended 1 cm so due to duodenal wall. Minimal intraduodenal bile duct therefore a balloon biliary dilating up to 8 mm undertaken. Amount of debris exit ducts with this maneuver. 8 mm balloon started in the biliary system with multiple sweeps undertaken clear no further debris post. No filling defects identified. Procedure completed. Impression: - A filling defect consistent with a stone was seen on the cholangiogram. - Choledocholithiasis was found. Removal was not attempted; no stent was inserted. Recommendation: - Follow LFTs, clear liquids today. In absence of complications can undergo cholecystectomy tomorrow Procedure Code(s): - 24427, Endoscopic retrograde cholangiopancreatography (ERCP); diagnostic, including collection of specimen(s) by brushing or washing, when performed (separate procedure) - 44911, Endoscopic catheterization of the biliary ductal system, radiological supervision and interpretation Diagnosis Code(s): - K80.50, Calculus of bile duct without cholangitis or cholecystitis without obstruction - R93.2, Abnormal findings on diagnostic imaging of liver and biliary tract CPT(R) - 2022 copyright [employer]. All Rights Reserved. The CPT codes, CCI edits and ICD codes generated are intended as suggestions and were generated based on input data. These codes are preliminary and upon baked and graphite inspector review may be revised to meet current compliance and payer requirements. The provider is responsible for the final determination of appropriate codes, and modifiers. Rudolph David MD This document has been electronically signed. Note Initiated:10/11/2024 Note Completed:10/11/2024 3:10 PM \\[id number]
--- NOTE | 2024-10-11 15:22 | Fluoroscopy Report ---
[place] ERCP biliary ductal CLINICAL HISTORY: CBD stone COMPARISON STUDY: MRCP and CT scan earlier today FLUOROSCOPY TIME: 3 minutes 44 seconds FLUOROSCOPY IMAGES: 3 EXPOSURE DOSE: 156 mGy FINDINGS: Endoscope is present at the upper abdomen. Common duct is cannulated with contrast injected . IMPRESSION: Fluoroscopy for ERCP. ACT 112: Negative or not required by law. Electronically signed by: Scot George M.D. 10/11/2024 3:21 PM
--- NOTE | 2024-10-11 16:32 | Communication Note ---
Date of Service: October 11, 2024 Seen at the bedside. Post ERCP. not present. Had gone to the car. States resolution of abdominal discomfort and pressure. No abdominal pain. To ld by nursing he will be n.p.o. for potential surgery tomorrow. Check liver tests CBC and a lipase in AM. Abdomen soft and benign
[2024-10-12 06:45] LABS: Alanine Aminotransferase 236 U/L (7-52); Albumin Globulin Ratio 1.2 (0.9-2); Alkaline Phosphatase 157 U/L (34-104); Anion Gap 5 (3-11); Bilirubin,Total 3.7 mg/dl (0.2-1.0); Blood Urea Nitrogen 7 mg/dl (6-23); Calcium 8.7 mg/dl (8.6-10.3); Carbon Dioxide 27 mmol/L (21-32); Chloride 107 mmol/L (98-107); Creatinine Clr Calc Pharmacy 105.1 ml/min; Globulin 2.9 gm/dl (2.5-4.0); Glucose 89 mg/dl (70-99(Fasting)); Lipase 28 U/L (11-82); Magnesium 2.3 mg/dl (1.7-2.4); Sodium 139 mmol/L (136-145); Total Protein 6.3 gm/dl (6.0-8.3)
[2024-10-12 07:27] LABS: Hematocrit (blood only) 38.5 % (42.0-52.0); Hemoglobin 12.9 g/dl (14.0-18.0); Immature Granulocytes # (auto) 0.03 K/uL (0.01-0.20); Immature Granulocytes % (auto) 0.3 %; Mean Corpuscular Hemoglobin 33.0 pg (25.0-34.0); Mean Corpuscular Volume 98.5 fL (80.0-100.0); Platelet Count 275 K/uL (130-400); RDW Standard Deviation 45.7 fL (36.4-46.3); Red Blood Count 3.91 M/uL (4.70-6.10); White Blood Count 9.16 K/ul (4.8-10.8)
--- NOTE | 2024-10-12 07:34 | Surgery Progress Note ---
Date of Service October 12, 2024 Assessment & Plan (1) Cholelithiasis with biliary obstruction: (2) Cholecystitis: Plan POD #1 s/p ERCP with stone extraction from the common bile duct. He is doing quite well. No pain or tenderness. LFTs still significantly elevated. Total b ilirubin 3.7. Given the duration of his symptoms as well as the LFTs, we will hold off on surgery for now. Continue the IV antibiotics. Will continue to track his symptoms and his labs. May advance diet as tolerated today. Will continue to follow. Admission and Anticipated Discharge Date Admission Date: October 11, 2024 Subjective Feeling significantly improved, pain has almost completely resolved. No nausea or vomiting. No fevers or chills. Physical Exam Physical Exam: NAD, A&O x 3 NCAT, no scleral icterus Abdomen: Soft, nontender, nondistended Results & Data Vital Signs (Past 12 Hours) Vital Signs Temp Pulse Resp BP Pulse Ox O2 Del Method 10/12/24 07:24 36.4 C L 53 L 16 113/71 96 Room Air 10/11/24 23:00 36.8 C 64 18 110/73 95 Room Air Laboratory Results 10/12/24 10/12/24 10/12/24 Range/Units 07:16 07:03 05:44 WBC 9.16 Cancelled RBC 3.91 L Cancelled Hgb 12.9 L Cancelled Hct 38.5 L Cancelled MCV 98.5 Cancelled MCH 33.0 Cancelled MCHC 33.5 Cancelled RDW Std Deviation 45.7 Cancelled RDW Coeff of Faustino 12.7 Cancelled Plt Count 275 Cancelled MPV 8.7 L Cancelled Immature Gran % (Auto) 0.3 Cancelled Neut % (Auto) 76.3 Cancelled Lymph % (Auto) 9.1 Cancelled [place] % (Auto) 11.7 Cancelled Eos % (Auto) 1.9 Cancelled Baso % (Auto) 0.7 Cancelled Neut # (Auto) 7.00 H Cancelled Lymph # (Auto) 0.83 L Cancelled [place] # (Auto) 1.07 H Cancelled Eos # (Auto) 0.17 Cancelled Baso # (Auto) 0.06 Cancelled Immature Gran # (Auto) 0.03 Cancelled Absolute Nucleated RBC Cancelled Nucleated RBC % (auto) Cancelled Neutrophils % (Manual) Cancelled Band Neutrophils % Cancelled Lymphocytes % (Manual) Cancelled Prolymphocyte % Cancelled Reactive Lymphs % (Man) Cancelled Monocytes % (Manual) Cancelled Eosinophils % (Manual) Cancelled Basophils % (Manual) Cancelled Metamyelocytes % (Man) Cancelled Myelocytes % (Man) Cancelled Promyelocytes % (Man) Cancelled Blast Cells % (Manual) Cancelled Plasma Cell % (Manual) Cancelled Other Cells % Cancelled Nucleated RBC % Cancelled Neutrophils # (Manual) Cancelled Band Neutrophils # Cancelled Total Absolute Neuts Cancelled Lymphocytes # (Manual) Cancelled Prolymphocyte # Cancelled Reactive Lymphs # Cancelled Total Abs Lymphocytes Cancelled Monocytes # (Manual) Cancelled Eosinophils # (Manual) Cancelled Basophils # (Manual) Cancelled Metamyelocytes # (Man) Cancelled Myelocytes # (Manual) Cancelled Promyelocytes # (Man) Cancelled Blast Cells # (Man) Cancelled Plasma Cell # (Manual) Cancelled Other Cells # Cancelled Nucleated RBCs # (Man) Cancelled Hypersegmented Neuts Cancelled Hyposegmented Neuts Cancelled Hypogranular Neuts Cancelled Large Granular Lymphs Cancelled # Lrg Granular Lymphs Cancelled Hairy Cells Cancelled Smudge Cells Cancelled Toxic Granulation Cancelled Toxic Vacuolation Cancelled Dohle Bodies Cancelled Tyesha Rods Cancelled Platelet Estimate Cancelled Hypogranular Platelets Cancelled Giant Platelets Cancelled Platelet Satelliting Cancelled RBC Morphology Cancelled Polychromasia Cancelled Hypochromasia Cancelled Poikilocytosis Cancelled Basophilic Stippling Cancelled Anisocytosis Cancelled Microcytosis Cancelled Macrocytosis Cancelled Spherocytes Cancelled Pappenheimer Bodies Cancelled Sickle Cells Cancelled Target Cells Cancelled Tear Drop Cells Cancelled Ovalocytes Cancelled Stomatocytes Cancelled [place] Bodies Cancelled Echinocytes Cancelled Acanthocytes (Spur) Cancelled Rouleaux Cancelled RBC Agglutinates Cancelled Schistocytes Cancelled [place] Cell Cancelled Sodium 139 (136-145) mmol/L Potassium Pending TNP Chloride 107 (98-107) mmol/L Carbon Dioxide 27 (21-32) mmol/L Anion Gap 5 (3-11) BUN 7 (6-23) mg/dl Creatinine 0.99 (0.6-1.4) mg/dl Est Cr Clr Drug Dosing 105.1 ml/min eGFR 90.52 BUN/Creatinine Ratio 7.1 L (10-20) Glucose 89 (70-99(Fasting)) mg/dl Estimat Average Glucose Pending Hemoglobin A1c Pending Calcium 8.7 (8.6-10.3) mg/dl Magnesium 2.3 (1.7-2.4) mg/dl Total Bilirubin 3.7 H (0.2-1.0) mg/dl Direct Bilirubin Pending TNP AST Pending TNP ALT 236 H (7-52) U/L Alkaline Phosphatase 157 H (34-104) U/L Total Protein 6.3 D (6.0-8.3) gm/dl Albumin 3.4 (3.4-5.0) gm/dl Globulin 2.9 (2.5-4.0) gm/dl Albumin/Globulin Ratio 1.2 (0.9-2) Lipase 28 (11-82) U/L Blood Parasites ID Cancelled
[2024-10-12 07:40] LABS: Potassium 4.3 mmol/L (3.5-5.1)
[2024-10-12 07:47] LABS: Hemoglobin A1C 5.3 % (4.5-5.6)
[2024-10-12] MEDS: diphenhydrAMINE Capsule 25 MG CAP PO PRN (12:51)
--- NOTE | 2024-10-12 14:23 | Gastroenterology Progress Note ---
Date of Service October 12, 2024 Assessment & Plan (1) Cholelithiasis with biliary obstruction: Plan: -Continue to monitor LFTs -Continue to monitor temp -Continue to monitor WBC count -Cholecystectomy planning per general surgery -Reviewed warning signs of worsening symptoms Admission and Anticipated Discharge Date Admission Date: October 11, 2024 Supervising Physician Co-Signing Physician Notes Less jaundice. States he is feeling 90% plus improved. He did get some right upper quadrant discomfort with p.o. intake. May signify gallbladder issue. Recheck LFTs tomorrow. Abdomen soft benign. Subjective Patient is a 53 yo male s/p ERCP for choledocholithiasis. He is feeling much better today. Pain is improved greatly. T bili 3.7. D bili 2.0. AST 124. ALT 236. AP 157. Patient has seen general surgery and he tells me they are deferring surgery for several weeks. No fever or chills. No leukocytosis. Review of Systems Constitutional: no fever and no chills Respiratory: no cough and no dyspnea Cardiovascular: no chest pain Gastrointestinal: + abdominal pain (greatly improved) Physical Exam Gastrointestinal (Abdomen): Inspection/Auscultation: abdomen normal to inspection Percussion/Palpation: + abdomen tender and abdomen soft Results & Data Results & Data Vital Signs (Past 12 Hours) Vital Signs Temp Pulse Resp BP Pulse Ox O2 Del Method 10/12/24 07:24 36.4 C L 53 L 16 113/71 96 Room Air PG Care Time/CCT Total # of Minutes Spent Total Time Spent with Patient: Total time spent is greater than 50% in coordination of care (as documented) at patient's floor/unit and/or counseling patient: Coding Level of Care Code 70020 SUB INP/OBS CARE 2/35MIN Diagnoses Cholelithiasis with biliary obstruction K80.21
--- NOTE | 2024-10-12 14:56 | Hospitalist Progress Note ---
Date of Service October 12, 2024 Assessment & Plan (1) Cholecystitis: Plan: 53-year-old male unassigned patient with past medical history significant for hypertension, depression comes with abdominal pain. Patient states having epigastric and right upper quadrant abdominal pain going on for last couple of days. Pain is radiating to the back. Associate with nausea. No vomiting. Had some loose stools. Denies any blood in the stools or black stools. Micturating okay. Thinks he had fevers. Denies any chest pain. Some shortness of breath when the pain is severe. Denies any headache. No runny nose or sore throat or cough. Resting comfortably and hemodynamics are okay currently. Sepsis--POA Acute cholecystitis Choledocholithiasis with biliary obstruction Hepatic steatosis --CT ABD:Gallbladder is distended shows thickened edematous gallbladder wall (wall thickness measures 6-7 mm) and pericholecystic fat stranding- suggestive of acute cholecystitis. Advised clinical correlation and ultrasound for further evaluation. There is minimal intrahepatic and extrahepatic biliary ductal dilatation. Tiny calcific focus seen in pancreatic head along common bile duct. Advised MRCP correlation to confirm/rule out choledocholithiasis. Hepatic steatosis --MRCP:4 mm filling defect within the mid common bile duct which corresponds to calcified density on CT. This represents a small common bile duct calculus. No additional common bile duct calculi. Mild prominence of intrahepatic bile ducts. Normal caliber common bile duct. Findings suggestive of acute cholecystitis. --S/P ERCP:ERCP with stone extraction from the common bile duct. Sphincterotomy. -- Blood cultures: No growth to date -- Continue IV Zosyn --Monitor LFTs, avoid hepatotoxic agents as able --Received IV fluids --Appreciate GI, surgery input Advance diet as tolerated Will eventually need cholecystectomy Hypertension BP elevated initially likely situational Continue atenolol IV hydralazine as needed Monitor blood pressure Blood pressure much improved Depression Continue Zoloft Hyperglycemia HbA1c 5.3 Hypokalemia Replete electrolytes as needed Monitor DVT prophylaxis SCDs Re: procedure CODE STATUS Full code Disposition Expect to discharge home when stable Admission and Anticipated Discharge Date Admission Date: October 11, 2024 Subjective Patient is seen and examined at bedside States feeling well today Tolerating current diet Denies any nausea, vomiting, abdominal pain, chest pain, dyspnea Family at bedside Review of Systems Review of Systems: All systems reviewed & are unremarkable except as noted in Subjective Physical Exam Physical Exam: Physical Exam: Vitals signs as noted above General Appearance:Moderately built and nourished, no apparent distress Head: normocephalic, Atraumatic Eyes: normal inspection, EOMI Neck: supple, Trachea midline Respiratory/Chest: Normal breath sounds, CTA, No accessory muscle use Cardiovascular: S1, S2, No murmur Abdomen/GI:Soft, +tender, Bowel sounds present Extremities/Musculoskeletal:normal inspection, no edema Neurologic/Psych:AAOX3, grossly no focal neurological deficits Skin: normal color, warm Results & Data Results & Data Vital Signs (Past 12 Hours) Vital Signs Temp Pulse Resp BP Pulse Ox O2 Del Method 10/12/24 07:24 36.4 C L 53 L 16 113/71 96 Room Air Laboratory Results Short CBC 10/12/24 10/12/24 Range/Units 05:44 07:16 WBC Cancelled 9.16 Hgb Cancelled 12.9 L Hct Cancelled 38.5 L Plt Count Cancelled 275 BMP 10/12/24 10/12/24 05:44 07:03 Sodium 139 Potassium TNP 4.3 D Chloride 107 Carbon Dioxide 27 BUN 7 Creatinine 0.99 Glucose 89 Calcium 8.7 Liver Function 10/12/24 10/12/24 Range/Units 05:44 07:03 Total Bilirubin 3.7 H (0.2-1.0) mg/dl Direct Bilirubin TNP 2.0 H AST TNP 124 H ALT 236 H (7-52) U/L Alkaline Phosphatase 157 H (34-104) U/L Albumin 3.4 (3.4-5.0) gm/dl
[2024-10-12] MEDS: IBUPROFEN 200 MG TAB PO ONE (17:18)
[2024-10-13 06:01] LABS: Hematocrit (blood only) 41.1 % (42.0-52.0); Hemoglobin 13.6 g/dl (14.0-18.0); Mean Corpuscular Hemoglobin 32.7 pg (25.0-34.0); Mean Corpuscular Volume 98.8 fL (80.0-100.0); Platelet Count 289 K/uL (130-400); RDW Standard Deviation 46.2 fL (36.4-46.3); Red Blood Count 4.16 M/uL (4.70-6.10); White Blood Count 7.70 K/ul (4.8-10.8)
[2024-10-13 06:20] LABS: Alanine Aminotransferase 220.0 U/L (7-52); Albumin Globulin Ratio 1.0 (0.9-2); Alkaline Phosphatase 171.0 U/L (34-104); Anion Gap 5.0 (3-11); Bilirubin,Total 4.3 mg/dl (0.2-1.0); Blood Urea Nitrogen 8.0 mg/dl (6-23); Calcium 9.0 mg/dl (8.6-10.3); Carbon Dioxide 31.0 mmol/L (21-32); Chloride 104.0 mmol/L (98-107); Creatinine Clr Calc Pharmacy 93.7 ml/min; Globulin 3.4 gm/dl (2.5-4.0); Glucose 98.0 mg/dl (70-99(Fasting)); Magnesium 2.3 mg/dl (1.7-2.4); Potassium 4.1 mmol/L (3.5-5.1); Sodium 140.0 mmol/L (136-145); Total Protein 6.9 gm/dl (6.0-8.3)
--- NOTE | 2024-10-13 07:02 | Communication Note ---
Date of Service: October 13, 2024 pain after eating yesterday and blip in liver enzymes today, mrcp today rule out retained stone, pre-discharge
[2024-10-13] MEDS: PIPERACILLIN/TAZOBACTAM 4.5 GM/100 ML BAG IV ONE (08:56)
--- NOTE | 2024-10-13 09:22 | Gastroenterology Progress Note ---
Date of Service October 13, 2024 Assessment & Plan (1) Transaminitis: (2) Cholelithiasis with biliary obstruction: Plan Repeat MRCP this AM to assess for retained stone in the bile ducts. Continue to monitor temp & WBC count. Further recommendations pending results of MRCP. Addendum: MRCP shows choledocholithiasis. Will schedule repeat ERCP for today. Keep NPO. Admission and Anticipated Discharge Date Admission Date: October 11, 2024 Supervising Physician Co-Signing Physician Notes Patient continues to have some vague right upper quadrant pain. With the blip in the liver enzymes a repeat MRCP was done which shows retained stone. Repeat ERCP for stone extraction today. Risk benefits explained including bleeding perforation and pancreatitis. Proceed today. Subjective Patient is a 53 yo male s/p ERCP with choledocholithiasis. Patient ate a regular diet for dinner last night. He notes some abdominal pain in the RUQ/epigastric region. Despite his initial improvement of LFTs after his ERCP, he had an increase this AM. T bili now 4.3. AST 130. ALT 220. Review of Systems Gastrointestinal: + abdominal pain Physical Exam Constitutional: well developed Gastrointestinal (Abdomen): normal bowel sounds, soft, nontender, no hepatosplenomegaly Psychiatric: Orientation: alert and oriented x 3 Results & Data Results & Data Vital Signs (Past 12 Hours) Vital Signs Temp Pulse Pulse Resp BP Pulse Ox O2 Del Method 10/13/24 08:16 37.0 C 89 15 128/82 94 Room Air 10/12/24 23:10 36.9 C 71 18 119/77 94 Room Air PG Care Time/CCT Total # of Minutes Spent Total Time Spent with Patient: Total time spent is greater than 50% in coordination of care (as documented) at patient's floor/unit and/or counseling patient: Coding Diagnoses Transaminitis R74.01 Cholelithiasis with biliary obstruction K80.21
--- NOTE | 2024-10-13 11:02 | Surgery Progress Note ---
Date of Service October 13, 2024 Assessment & Plan (1) Cholelithiasis with biliary obstruction: (2) Cholecystitis: Plan POD #2 s/p ERCP with stone extraction from the common bile duct. Pain stable, nausea last night with food intake. Unfortunately, LFTs and T. bili bumped tojames ay. Concern for retained Choledocholithiasis. Given the duration of his symptoms as well as the LFTs, we will hold off on surgery for now. Recommend elective interval cholecystectomy in 4-6 weeks once all inflammation goes down. Continue the IV antibiotics. IF GI needs to proceed with repeat ERCP would recommend stent placement given plan for interval cholecystectomy and not during this admission. Dr. Larkin has seen and examined patient, agrees with above. Admission and Anticipated Discharge Date Admission Date: October 11, 2024 Subjective pain is about the same nausea last night with food no fevers but had sweats last night Physical Exam Constitutional: WD/WN, vitals as above cooperative; no acute distress and not ill appearing Respiratory: normal respiratory effort; no respiratory distress Gastrointestinal (Abdomen): Inspection/Auscultation: abdomen normal to inspection; abdomen not distended Percussion/Palpation: + abdomen tender (mild in RUQ) and abdomen soft; no guarding, abdomen not rigid and abdomen not firm Skin: no rashes, warm and dry Psychiatric: Orientation: alert and oriented x 3 Results & Data Vital Signs (Past 12 Hours) Vital Signs Temp Pulse Pulse Resp BP Pulse Ox O2 Del Method 10/13/24 08:16 37.0 C 89 15 128/82 94 Room Air 10/12/24 23:10 36.9 C 71 18 119/77 94 Room Air Laboratory Results 10/13/24 Range/Units 05:36 WBC 7.70 (4.8-10.8) K/ul RBC 4.16 L (4.70-6.10) M/uL Hgb 13.6 L (14.0-18.0) g/dl Hct 41.1 L (42.0-52.0) % MCV 98.8 (80.0-100.0) fL MCH 32.7 (25.0-34.0) pg MCHC 33.1 (32.0-36.0) g/dL RDW Std Deviation 46.2 (36.4-46.3) fL RDW Coeff of Faustino 12.6 (11.5-14.5) % Plt Count 289 (130-400) K/uL MPV 8.9 L (9.4-12.4) fL Sodium 140 (136-145) mmol/L Potassium 4.1 (3.5-5.1) mmol/L Chloride 104 (98-107) mmol/L Carbon Dioxide 31 (21-32) mmol/L Anion Gap 5 (3-11) BUN 8 (6-23) mg/dl Creatinine 1.11 (0.6-1.4) mg/dl Est Cr Clr Drug Dosing 93.7 ml/min eGFR 78.91 BUN/Creatinine Ratio 7.2 L (10-20) Glucose 98 (70-99(Fasting)) mg/dl Calcium 9.0 (8.6-10.3) mg/dl Magnesium 2.3 (1.7-2.4) mg/dl Total Bilirubin 4.3 H (0.2-1.0) mg/dl AST 130 H (13-39) U/L ALT 220 H (7-52) U/L Alkaline Phosphatase 171 H (34-104) U/L Total Protein 6.9 (6.0-8.3) gm/dl Albumin 3.5 (3.4-5.0) gm/dl Globulin 3.4 (2.5-4.0) gm/dl Albumin/Globulin Ratio 1.0 (0.9-2)
--- NOTE | 2024-10-13 13:12 | Magnetic Resonance Report ---
MR MRCP CLINICAL HISTORY: r/o retained stone COMPARISON STUDY: 10/11/2024 FINDINGS: There is motion artifact. There is a stable 4 mm filling defect at the mid to distal aspect of the common bile duct series 4 image 59. Common bile duct measures 5 mm in maximal diameter, nondi lated. No gallstones seen. Stable mildly distended gallbladder with mild gallbladder wall thickening. 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 IMPRESSION: Stable 4 mm filling defect mid to distal aspect of the common bile duct without common d uctal dilatation. This could represent a small common bile duct stone. ACT 112: Negative or not required by law. Electronically signed by: Scot George M.D. 10/13/2024 1:10 PM
--- NOTE | 2024-10-13 14:03 | Hospitalist Progress Note ---
Date of Service October 13, 2024 Assessment & Plan (1) Cholecystitis: Plan: 53-year-old male unassigned patient with past medical history significant for hypertension, depression comes with abdominal pain. Patient states having epigastric and right upper quadrant abdominal pain going on for last couple of days. Pain is radiating to the back. Associate with nausea. No vomiting. Had some loose stools. Denies any blood in the stools or black stools. Micturating okay. Thinks he had fevers. Denies any chest pain. Some shortness of breath when the pain is severe. Denies any headache. No runny nose or sore throat or cough. Resting comfortably and hemodynamics are okay currently. Sepsis--POA Acute cholecystitis Choledocholithiasis with biliary obstruction Hepatic steatosis --CT ABD:Gallbladder is distended shows thickened edematous gallbladder wall (wall thickness measures 6-7 mm) and pericholecystic fat stranding- suggestive of acute cholecystitis. Advised clinical correlation and ultrasound for further evaluation. There is minimal intrahepatic and extrahepatic biliary ductal dilatation. Tiny calcific focus seen in pancreatic head along common bile duct. Advised MRCP correlation to confirm/rule out choledocholithiasis. Hepatic steatosis --MRCP:4 mm filling defect within the mid common bile duct which corresponds to calcified density on CT. This represents a small common bile duct calculus. No additional common bile duct calculi. Mild prominence of intrahepatic bile ducts. Normal caliber common bile duct. Findings suggestive of acute cholecystitis. --S/P ERCP:ERCP with stone extraction from the common bile duct. Sphincterotomy. --S/P Repeat ERCP:Stable 4 mm filling defect mid to distal aspect of the common bile duct without common ductal dilatation. This could represent a small common bile duct stone. -- Blood cultures: No growth to date -- Continue IV Zosyn --Monitor LFTs, avoid hepatotoxic agents as able --Received IV fluids --Appreciate GI, surgery input Surgery suggested cholecystectomy as outpatient Plan for repeat ERCP today Hypertension BP elevated initially likely situational Continue atenolol IV hydralazine as needed Monitor blood pressure Stable Depression Continue Zoloft Hyperglycemia HbA1c 5.3 Hypokalemia Replete electrolytes as needed Monitor DVT prophylaxis SCDs Re: procedure CODE STATUS Full code Disposition Expect to discharge home when stable Admission and Anticipated Discharge Date Admission Date: October 11, 2024 Subjective Patient is seen and examined at bedside States having right-sided abdominal pain today Had repeat ERCP showing persistent filling defect No other complaints today Family at bedside Review of Systems Review of Systems: All systems reviewed & are unremarkable except as noted in Subjective Physical Exam Physical Exam: Physical Exam: Vitals signs as noted above General Appearance:Moderately built and nourished, no apparent distress Head: normocephalic, Atraumatic Eyes: normal inspection, EOMI Neck: supple, Trachea midline Respiratory/Chest: Normal breath sounds, CTA, No accessory muscle use Cardiovascular: S1, S2, No murmur Abdomen/GI:Soft, +tender, Bowel sounds present Extremities/Musculoskeletal:normal inspection, no edema Neurologic/Psych:AAOX3, grossly no focal neurological deficits Skin: normal color, warm Results & Data Results & Data Vital Signs (Past 12 Hours) Vital Signs Temp Pulse Resp BP Pulse Ox O2 Del Method 10/13/24 12:01 36.8 C 74 17 136/74 93 Room Air 10/13/24 08:16 37.0 C 89 15 128/82 94 Room Air Laboratory Results Short CBC 10/13/24 Range/Units 05:36 WBC 7.70 (4.8-10.8) K/ul Hgb 13.6 L (14.0-18.0) g/dl Hct 41.1 L (42.0-52.0) % Plt Count 289 (130-400) K/uL BMP 10/13/24 05:36 Sodium 140 Potassium 4.1 Chloride 104 Carbon Dioxide 31 BUN 8 Creatinine 1.11 Glucose 98 Calcium 9.0 Liver Function 10/13/24 Range/Units 05:36 Total Bilirubin 4.3 H (0.2-1.0) mg/dl AST 130 H (13-39) U/L ALT 220 H (7-52) U/L Alkaline Phosphatase 171 H (34-104) U/L Albumin 3.5 (3.4-5.0) gm/dl
[2024-10-13] MEDS: PIPERACILLIN/TAZOBACTAM 4.5 GM/100 ML BAG IV SCH (14:44)
--- NOTE | 2024-10-13 15:12 | Anesthesiology Consultation ---
Date of Service October 13, 2024 Assessment & Plan ASA ASA2 Proposed Anesthesia Anesthesia Type: General Risk / Benefits Reviewed With: PT / POA / Parent / Guardian, Accepts Plan and Informed Consent Obtained History Surgery Operation Date: 10/11/24 09:20 Proposed Procedures p Endoscopic Retrograde Cholangiopancreatogram - Rudolph David MD Operation Date: 10/13/24 17:00 Proposed Procedures p Endoscopic Retrograde Cholangiopancreatogram - Rudolph David MD Height/Weight Height: 5 ft 11 in Weight: 104.8 kg Allergies Allergy/AdvReac Type Severity Reaction Status Date / Time No Known Allergies Allergy Verified 10/11/24 13:32 Medications Home Medications Medication Instructions Recorded Confirmed Last Taken atenolol 25 mg tablet 25 mg PO DAILY 10/11/24 10/11/24 Unknown sertraline 50 mg tablet (Zoloft) 50 mg PO DAILY 10/11/24 10/11/24 Unknown Active Medications Generic Name Dose Route Start Last Admin Trade Name Freq PRN Reason Stop Dose Admin Atenolol 25 mg 10/11/24 09:00 10/12/24 08:35 Atenolol 25 Mg Tablet PO 11/10/24 08:59 Not Given DAILY KRANTHI Diphenhydramine HCl 25 mg 10/12/24 12:42 10/12/24 12:51 Diphenhydramine Capsule 25 Mg Cap PO 11/11/24 12:41 25 mg Q6H PRN Administration Allergy Symptoms Hydromorphone HCl 0.5 mg 10/11/24 09:00 10/11/24 12:22 Hydromorphone Inj 0.5 Mg/0.5 Ml Syr IV 10/25/24 08:59 0.5 mg Q4H PRN Administration Severe Pain (Scale 7, 8, 9,10) Piperacillin Sod/Tazobactam Sod 4.5 gm in 100 mls @ 25 mls/hr 10/13/24 15:00 10/13/24 14:44 Zosyn IV 10/23/24 14:59 25 mls/hr Q8H KRANTHI Administration Protocol Sertraline HCl 50 mg 10/11/24 09:00 10/12/24 08:34 Sertraline Hcl 50 Mg Tablet PO 11/10/24 08:59 50 mg DAILY KRANTHI Administration NPO Date Last Intake of Fluids: 10/13/24 Time Last Intake of Fluids: 07:30 Last Intake of Fluids Comment: today sip with pills around 929 Date Last Intake of Solids: 10/13/24 Time Last Intake of Solids: 07:00 Past Medical History Medical History (Updated 10/13/24 @ 09:22 by Eugenia Coreas PA-C) Encounter for pre-operative examination Sleep apnea treated with continuous positive airway pressure (CPAP) Hypertension Anxiety and depression Exercise / Class Metabolic Activity II 4-5 Yardwork/Stairs/Walk up hill Past Surgical History Surgical History H/O colonoscopy with polypectomy Past Anesthesia History No Hx of Anesthesia Complications and No Family Hx of Anesthesia Complications History of PONV No Hx of PONV and No Hx of Motion Sickness Social History Smoking Status: Former smoker Hx Alcohol Use: Yes alcohol intake frequency: a few times a month Hx Substance Use: No Physical Exam Vital Signs Last Vital Signs Temp 36.6 C 10/13/24 14:41 Pulse 80 10/13/24 14:41 Resp 16 10/13/24 14:41 BP 127/80 10/13/24 14:41 Pulse Ox 95 10/13/24 14:41 O2 Del Method Room Air 10/13/24 14:41 O2 Flow Rate 6 10/11/24 15:06 Constitutional no acute distress Jaundiced ENMT Mouth: no TMJ abnormality and no dentition abnormality Thyromental Distance: > or= 3.5 Finger Breadths Mallampati Class: III Neck + thick neck Respiratory normal respiratory effort Auscultation: lungs clear to auscultation bilaterally Cardiovascular Rate/Rhythm: regular rate and regular rhythm Neurologic moves all extremities Psychiatric Orientation: alert and oriented x 3 Testing Laboratory Results 10/13/24 05:36 10/13/24 05:36 Hemoglobin A1c 5.3 % (4.5-5.6) 10/12/24 05:44 Urine Color Yellow 10/11/24 Unknown Urine Appearance Clear (Clear) 10/11/24 Unknown Urine pH 7.0 (4.5-7.5) 10/11/24 Unknown Ur Specific [place] 1.010 (1.000-1.030) 10/11/24 Unknown Urine Protein 1+ (Negative) H 10/11/24 Unknown Urine Glucose (UA) Negative (Negative) 10/11/24 Unknown Urine Ketones Negative (Negative) 10/11/24 Unknown Urine Nitrite Negative (Negative) 10/11/24 Unknown Ur Leukocyte Esterase Negative (Negative) 10/11/24 Unknown Urine RBC 0-2 /hpf (0-2) 10/11/24 Unknown Urine WBC 0-5 /hpf (0-5) 10/11/24 Unknown Ur Epithelial Cells 0-2 /hpf (0-2) 10/11/24 Unknown 10/11/24 05:05 Aerobic Blood Culture - Preliminary Blood No growth in Aerobic bottle after 48 hours. Anaerobic Blood Culture - Preliminary No growth in Anaerobic bottle after 48 hours. 10/11/24 05:00 Aerobic Blood Culture - Preliminary Blood No growth in Aerobic bottle after 48 hours. Anaerobic Blood Culture - Preliminary No growth in Anaerobic bottle after 48 hours.
[2024-10-13] MEDS ORDERED: LIDOCAINE 2% 2 ML VIAL/AMP(20MG/ML) INFIL ONE (15:14)
[2024-10-13] MEDS ORDERED: SUCCINYLCHOLINE CHLORIDE 20 MG/ML 10 ML VIAL IV ONE (15:14)
[2024-10-13] MEDS ORDERED: MIDAZOLAM HCL 1 MG/ML 2ML VIAL ONE (15:14)
[2024-10-13] MEDS ORDERED: PROPOFOL IV EMULSION 10 MG/ML 20 ML VIAL IV ONE (15:14)
[2024-10-13] MEDS ORDERED: ONDANSETRON INJ 2 MG/ML 2 ML VIAL ONE (15:14)
[2024-10-13] MEDS ORDERED: ROCURONIUM BROMIDE 10 MG/ML 5 ML VIAL IV ONE (15:14)
[2024-10-13] MEDS: INDOMETHACIN 50 MG SUPP PR ONE (16:41)
--- NOTE | 2024-10-13 17:16 | GI REPORT ---
[facility] Patient: SERVANDO TOVAR : 1970 Sex at : Male Age: 53 Years Procedure: ERCP Date: 10/13/2024 Attending Physician: Rudolph David MD Referring MD: Referred Self Indications: - Bile duct stone(s) - Elevated liver enzymes Medications: - Indomethacin 100 mg ND - General Anesthesia Complications: - No immediate complications. Estimated Blood Loss: - Estimated blood loss: None. Procedure: - The ercp scope was introduced through the mouth and advanced to the duodenum and used to inject contrast into the bile duct. - The ERCP was accomplished without difficulty. - The patient tolerated the procedure well. Findings: - Moderate amount of food in the stomach. Some food debris in the duodenum. Previous sphincterotomy site identified. Draining dark and septated bile. Initial cannulation common bile duct. There was significant spill of contrast back into the duodenum which mixed with food somewhat hampering the view. Guidewires placed in the proximal biliary tree. Injection showed a small filling defect in the distal limited duct. This is consistent with the previous identified 4 mm stone. This duct was swept with extraction of a small stone fragment. The bile was quite dark inspissated. Multiple sweeps resulted in continued removal of septated bile and debris. Based on the small size of the duct and persistent debris which may be coming from the gallbladder decision was made to stent the bile duct to maintain biliary patency until gallbladder removed. Impression: - Moderate amount of food in the stomach. Some food debris in the duodenum. Previous sphincterotomy site identified. Draining dark and septated bile. Initial cannulation common bile duct. There was significant spill of contrast back into the duodenum which mixed with food somewhat hampering the view. Guidewires placed in the proximal biliary tree. Injection showed a small filling defect in the distal limited duct. This is consistent with the previous identified 4 mm stone. This duct was swept with extraction of a small stone fragment. The bile was quite dark and inspissated. Multiple sweeps resulted in continued removal of cloudy bile and debris. Based on the small size of the duct and persistent debris which may be coming from the gallbladder, decision was made to stent the bile duct to maintain biliary patency until gallbladder removed. - Small stone extracted. Dark and septated bile with debris despite multiple sweeps. Therefore biliary stent placed to maintain patency until gallbladder removed Recommendation: - Clear liquids. - Recheck liver test tomorrow. - Stent removal 3 to 4 weeks, cholecystectomy prior to stent removal Procedure Code(s): - 18554, Endoscopic retrograde cholangiopancreatography (ERCP); diagnostic, including collection of specimen(s) by brushing or washing, when performed (separate procedure) Diagnosis Code(s): - K80.50, Calculus of bile duct without cholangitis or cholecystitis without obstruction - R74.8, Abnormal levels of other serum enzymes CPT(R) - 2023 copyright [employer]. All Rights Reserved. The CPT codes, CCI edits and ICD codes generated are intended as suggestions and were generated based on input data. These codes are preliminary and upon shared services and outsourcing manager review may be revised to meet current compliance and payer requirements. The provider is responsible for the final determination of appropriate codes, and modifiers. Rudolph David MD This document has been electronically signed. Note Initiated:10/13/2024 Note Completed:10/13/2024 5:15 PM [email or web address]\[email or web address]\[id number]
[2024-10-13] MEDS: ONDANSETRON INJ 2 MG/ML 2 ML VIAL IV PRN (18:04)
--- NOTE | 2024-10-13 19:35 | Anesthesiology Progress Note ---
Date of Service October 13, 2024 Anesthesia Post Procedure Vital Signs Vital Signs: Temp Pulse Pulse Resp BP Pulse Ox O2 Del Method 10/13/24 19:00 36.6 C 86 18 148/88 H 97 Room Air 10/13/24 18:00 36.6 C 96 H 16 131/83 96 Room Air 10/13/24 17:45 36.7 C 98 H 15 128/79 95 Room Air 10/13/24 17:35 99 H 15 121/79 95 Room Air 10/13/24 17:25 100 H 15 120/81 95 Room Air 10/13/24 17:15 115 H 14 133/80 96 Room Air 10/13/24 17:09 36.3 C L 117 H 16 128/83 100 Room Air 10/13/24 15:16 36.2 C L 79 16 141/94 H 96 Room Air 10/13/24 14:41 36.6 C 80 16 127/80 95 Room Air 10/13/24 12:01 36.8 C 74 17 136/74 93 Room Air 10/13/24 08:16 37.0 C 89 15 128/82 94 Room Air 10/12/24 23:10 36.9 C 71 18 119/77 94 Room Air Pain Intensity Anterior Abdomen: Pain Intensity: 2 Transfer of Care Handoff Completed per policy Notes Mental Status: alert / awake / arousable Patient Amnestic to Procedure: Yes Nausea / Vomiting: adequately controlled Pain: adequately controlled Airway Patency, RR, SpO2: stable & adequate BP & HR: stable & adequate Hydration State: stable & adequate Anesthetic Complications: no major complications apparent
[2024-10-13] MEDS: COUGH DROP (SUGAR FREE) LOZ 24 LOZ/1 BOX BUCCAL ONE (23:19)
[2024-10-14 06:32] LABS: Hematocrit (blood only) 38.4 % (42.0-52.0); Hemoglobin 12.8 g/dl (14.0-18.0); Mean Corpuscular Hemoglobin 32.9 pg (25.0-34.0); Mean Corpuscular Volume 98.7 fL (80.0-100.0); Platelet Count 286 K/uL (130-400); RDW Standard Deviation 45.5 fL (36.4-46.3); Red Blood Count 3.89 M/uL (4.70-6.10); White Blood Count 6.72 K/ul (4.8-10.8)
[2024-10-14 06:59] LABS: Alanine Aminotransferase 220 U/L (7-52); Albumin Globulin Ratio 1.0 (0.9-2); Alkaline Phosphatase 170 U/L (34-104); Anion Gap 6 (3-11); Bilirubin,Total 2.0 mg/dl (0.2-1.0); Blood Urea Nitrogen 9 mg/dl (6-23); Calcium 9.0 mg/dl (8.6-10.3); Carbon Dioxide 30 mmol/L (21-32); Chloride 104 mmol/L (98-107); Creatinine Clr Calc Pharmacy 104.0 ml/min; Globulin 3.4 gm/dl (2.5-4.0); Glucose 86 mg/dl (70-99(Fasting)); Sodium 140 mmol/L (136-145); Total Protein 6.8 gm/dl (6.0-8.3)
--- NOTE | 2024-10-14 07:35 | Fluoroscopy Report ---
INTRAOPERATIVE RADIOGRAPHS CLINICAL HISTORY: ERCP Fluoro time: 2 minutes 54 seconds. Ka,r: 51.59 mGy FINDINGS: 4 spot fluoroscopic views of the right upper quadrant from an ERCP procedure are correlated with MRCP dated 10/13/2024. Contrast within the biliary tree shows dilatation of the common bile duct . An intraluminal filling defect likely represents choledocholithiasis. There is no significant intra hepatic biliary ductal dilatation on the provided images. The final image shows a common bile duct st ent in place. There is passage of contrast into duodenum. IMPRESSION: Intraoperative images from ERCP procedure and common bile duct stenting as above. Electronically signed by: Jose Freeman M.D. 10/14/2024 7:32 AM
[2024-10-14 07:37] VITALS: BP 119/78; PULSE 70; RESP 16; TEMP 98.2; O2SAT 92
[2024-10-14 08:42] LABS: Potassium 3.8 mmol/L (3.5-5.1)
--- NOTE | 2024-10-14 08:49 | Surgery Progress Note ---
Date of Service October 14, 2024 Assessment & Plan (1) Cholelithiasis with biliary obstruction: (2) Transaminitis: Plan POD 3 from ERCP with stone extraction and POD 1 from repeat ERCP with further stone extraction and stent placement due to increasing LFTs The patient confirms he will follow up with Dr. Larkin with [facility] after discharge for GB removal Please provide Dr. Larkin's office contact on his discharge instructions May advance diet as tolerated and discharge per medicine/GI Surgery will sign off at this time, please recall with questions Admission and Anticipated Discharge Date Admission Date: October 11, 2024 Subjective Pt seen this am. Feels improved. No nausea or vomiting o/n. Had clears breakfast this am. Physical Exam Constitutional: not ill appearing, not disheveled, not in distress and not diaphoretic Respiratory: normal respiratory effort; no respiratory distress, no labored breathing and does not use accessory muscles Gastrointestinal (Abdomen): Inspection/Auscultation: abdomen normal to inspection; abdomen not distended Percussion/Palpation: + abdomen tender (minimal TTP RUQ) and abdomen soft; no guarding and abdomen not rigid Skin: warm, dry, no jaundice Results & Data Vital Signs (Past 12 Hours) Vital Signs Temp Pulse Resp BP Pulse Ox O2 Del Method 10/14/24 07:36 36.8 C 70 16 119/78 92 Room Air 10/14/24 03:19 36.5 C 69 18 117/70 96 Room Air 10/13/24 23:20 36.4 C L 68 18 143/91 H 96 Room Air 10/13/24 21:00 36.6 C 74 18 142/87 H 98 Room Air PG Care Time/CCT Total # of Minutes Spent Total Time Spent with Patient: Total time spent is greater than 50% in coordination of care (as documented) at patient's floor/unit and/or counseling patient: Coding Level of Care Code 88687 SUB INP/OBS CARE 03/18MIN Diagnoses Cholelithiasis with biliary obstruction K80.21 Transaminitis R74.01
--- NOTE | 2024-10-14 11:19 | Hospitalist Progress Note ---
Date of Service October 14, 2024 Assessment & Plan (1) Cholecystitis: Plan: 53-year-old male unassigned patient with past medical history significant for hypertension, depression comes with abdominal pain. Patient states having epigastric and right upper quadrant abdominal pain going on for last couple of days. Pain is radiating to the back. Associate with nausea. No vomiting. Had some loose stools. Denies any blood in the stools or black stools. Micturating okay. Thinks he had fevers. Denies any chest pain. Some shortness of breath when the pain is severe. Denies any headache. No runny nose or sore throat or cough. Resting comfortably and hemodynamics are okay currently. Sepsis--POA Acute cholecystitis Choledocholithiasis with biliary obstruction Hepatic steatosis --CT ABD:Gallbladder is distended shows thickened edematous gallbladder wall (wall thickness measures 6-7 mm) and pericholecystic fat stranding- suggestive of acute cholecystitis. Advised clinical correlation and ultrasound for further evaluation. There is minimal intrahepatic and extrahepatic biliary ductal dilatation. Tiny calcific focus seen in pancreatic head along common bile duct. Advised MRCP correlation to confirm/rule out choledocholithiasis. Hepatic steatosis --MRCP:4 mm filling defect within the mid common bile duct which corresponds to calcified density on CT. This represents a small common bile duct calculus. No additional common bile duct calculi. Mild prominence of intrahepatic bile ducts. Normal caliber common bile duct. Findings suggestive of acute cholecystitis. --S/P ERCP:ERCP with stone extraction from the common bile duct. Sphincterotomy. --S/P Repeat ERCP:Stable 4 mm filling defect mid to distal aspect of the common bile duct without common ductal dilatation. This could represent a small common bile duct stone. -- Blood cultures: No growth to date -- Continue IV Zosyn>> transition to oral antibiotics upon discharge --Monitor LFTs, avoid hepatotoxic agents as able --Received IV fluids --Appreciate GI, surgery input Advance diet as tolerated-- Needs follow-up with surgery (for cholecystectomy )and GI (stent removal ) upon discharge Hypertension BP elevated initially likely situational Continue atenolol IV hydralazine as needed Monitor blood pressure Stable Depression Continue Zoloft Hyperglycemia HbA1c 5.3 Hypokalemia Replete electrolytes as needed Monitor DVT prophylaxis SCDs Re: procedure CODE STATUS Full code Disposition Home Admission and Anticipated Discharge Date Admission Date: October 11, 2024 Subjective Patient is seen and examined at bedside States feeling a lot better today Minimal abdominal discomfort today Family at bedside Discussed with GI today No nausea, vomiting Tolerating current diet Denies any chest pain, dyspnea Review of Systems Review of Systems: All systems reviewed & are unremarkable except as noted in Subjective Physical Exam Physical Exam: Physical Exam: Vitals signs as noted above General Appearance:Moderately built and nourished, no apparent distress Head: normocephalic, Atraumatic Eyes: normal inspection, EOMI Neck: supple, Trachea midline Respiratory/Chest: Normal breath sounds, CTA, No accessory muscle use Cardiovascular: S1, S2, No murmur Abdomen/GI:Soft, +tender, Bowel sounds present Extremities/Musculoskeletal:normal inspection, no edema Neurologic/Psych:AAOX3, grossly no focal neurological deficits Skin: normal color, warm Results & Data Results & Data Vital Signs (Past 12 Hours) Vital Signs Temp Pulse Resp BP Pulse Ox O2 Del Method 10/14/24 07:36 36.8 C 70 16 119/78 92 Room Air 10/14/24 03:19 36.5 C 69 18 117/70 96 Room Air 10/13/24 23:20 36.4 C L 68 18 143/91 H 96 Room Air Laboratory Results Short CBC 10/14/24 Range/Units 05:36 WBC 6.72 (4.8-10.8) K/ul Hgb 12.8 L (14.0-18.0) g/dl Hct 38.4 L (42.0-52.0) % Plt Count 286 (130-400) K/uL BMP 10/14/24 10/14/24 05:36 07:45 Sodium 140 Potassium TNP 3.8 Chloride 104 Carbon Dioxide 30 BUN 9 Creatinine 1.00 Glucose 86 Calcium 9.0 Liver Function 10/14/24 10/14/24 Range/Units 05:36 07:45 Total Bilirubin 2.0 H D (0.2-1.0) mg/dl AST TNP 150 H ALT 220 H (7-52) U/L Alkaline Phosphatase 170 H (34-104) U/L Albumin 3.4 (3.4-5.0) gm/dl
--- NOTE | 2024-10-14 11:41 | Gastroenterology Progress Note ---
Date of Service October 14, 2024 Assessment & Plan (1) Cholelithiasis with biliary obstruction: Plan: 2 ERCPs for removal of tiny stones. Potential stones in the cystic duct. Stented. Proceed with cholecystectomy prior to next ERCP. Patient can be discharged return if fevers jaundice or pain Admission and Anticipated Discharge Date Admission Date: October 11, 2024 Subjective Common duct stones ERCP yesterday removal of common duct stone. Stones are small but so was docked. There was a lot of crusting debris in the biliary system. Patient was stented. Imagings do suggest further stones in the cystic duct putting him at risk of repeated occlusions of the biliary duct. The stones are small but so is his duct. Ideally has a cholecystectomy followed by ERCP. He has tiny duct, so 7F stent placed. Ideally ths is removed in 4 weeks. Risk of occulsion based in size and crud in duct. Would like his gallbladder removed prior to his next ERCP. I did [place] his physician Maxim Larkin to outline the plan and if possible gallbladder removed full prior to next ERCP. Patient has been advised to return if there are fevers or chills immediately. Jaundice or recurrent pain. LFTs improving bili down, white count normal Noted some left-sided abdominal discomfort exam entirely benign. Follow-up Physical Exam Physical Exam: Afebrile vital stable less jaundice. Benign abdomen Results & Data Results & Data Vital Signs (Past 12 Hours) Vital Signs Temp Pulse Resp BP Pulse Ox O2 Del Method 10/14/24 07:36 36.8 C 70 16 119/78 92 Room Air 10/14/24 03:19 36.5 C 69 18 117/70 96 Room Air PG Care Time/CCT Total # of Minutes Spent Total Time Spent with Patient: Total time spent is greater than 50% in coordination of care (as documented) at patient's floor/unit and/or counseling patient: Coding Level of Care Code 87825 SUB INP/OBS CARE 03/18MIN Diagnoses Cholelithiasis with biliary obstruction K80.21
--- NOTE | 2024-10-14 12:36 | Discharge Summary ---
Date of Service October 14, 2024 Admission HPI Per Admitting Provider 53-year-old male unassigned patient with past medical history significant for hypertension, depression comes with abdominal pain. Patient states having epigastric and right upper quadrant abdominal pain going on for last couple of days. Pain is radiating to the back. Associate with nausea. No vomiting. Had some loose stools. Denies any blood in the stools or black stools. Micturating okay. Thinks he had fevers. Denies any chest pain. Some shortness of breath when the pain is severe. Denies any headache. No runny nose or sore throat or cough. Resting comfortably and hemodynamics are okay currently. Past medical history. As mentioned above. Past surgical history. Denies any surgeries. Social history. No smoking. No alcohol use. No drug use. Family history. Denies any family history. Admission Exam Per Admitting Provider General- Not in distress Head- atraumatic Eyes- PERRL. ENT- oropharynx clear Neck- supple, no JVD. Lungs- clear to auscultation no wheezing or crackles Heart- regular rhythm; no murmur, no gallop. Abdomen- normal bowel sounds, soft, epigastric and RUQ tenderness present, no guarding or rigidity, no distension Extremities- no pretibial edema, no erythema seen Neuro- alert, oriented PERRL, EOMI; no facial palsy; no dysarthria; moves extremities Principal Diagnosis Sepsis Acute cholecystitis Choledocholithiasis with biliary obstruction Discharge Data Allergies Allergy/AdvReac Type Severity Reaction Status Date / Time No Known Allergies Allergy Verified 10/11/24 13:32 Consultations 10/11/24 05:28 ED Decision to Admit Stat 10/11/24 09:00 Consult Gastroenterology Routine Consult General Surgery Routine Procedures Performed Operation Date: 10/13/24 17:00 Actual Procedures p Endoscopic Retrograde Cholangiopancreato(Not Applicable) - Rudolph David MD Ordered Studies Laboratory Results WBC 6.72 K/ul (4.8-10.8) 10/14/24 05:36 RBC 3.89 M/uL (4.70-6.10) L 10/14/24 05:36 Hgb 12.8 g/dl (14.0-18.0) L 10/14/24 05:36 POC Hgb 15.3 g/dl (14.0-18.0) 10/11/24 03:38 Hct 38.4 % (42.0-52.0) L 10/14/24 05:36 POC Hct 45 % (42-52) 10/11/24 03:38 MCV 98.7 fL (80.0-100.0) 10/14/24 05:36 MCH 32.9 pg (25.0-34.0) 10/14/24 05:36 MCHC 33.3 g/dL (32.0-36.0) 10/14/24 05:36 RDW Std Deviation 45.5 fL (36.4-46.3) 10/14/24 05:36 RDW Coeff of Faustino 12.6 % (11.5-14.5) 10/14/24 05:36 Plt Count 286 K/uL (130-400) 10/14/24 05:36 MPV 9.2 fL (9.4-12.4) L 10/14/24 05:36 Immature Gran % (Auto) 0.3 % 10/12/24 07:16 Neut % (Auto) 76.3 % 10/12/24 07:16 Lymph % (Auto) 9.1 % 10/12/24 07:16 [place] % (Auto) 11.7 % 10/12/24 07:16 Eos % (Auto) 1.9 % 10/12/24 07:16 Baso % (Auto) 0.7 % 10/12/24 07:16 Neut # (Auto) 7.00 K/uL (1.40-6.50) H 10/12/24 07:16 Lymph # (Auto) 0.83 K/uL (1.20-3.40) L 10/12/24 07:16 [place] # (Auto) 1.07 K/uL (0.11-0.59) H 10/12/24 07:16 Eos # (Auto) 0.17 K/uL (0.00-0.50) 10/12/24 07:16 Baso # (Auto) 0.06 K/uL (0.00-0.20) 10/12/24 07:16 Immature Gran # (Auto) 0.03 K/uL (0.01-0.20) 10/12/24 07:16 Absolute Nucleated RBC Cancelled 10/12/24 05:44 Nucleated RBC % (auto) Cancelled 10/12/24 05:44 Neutrophils % (Manual) Cancelled 10/12/24 05:44 Band Neutrophils % Cancelled 10/12/24 05:44 Lymphocytes % (Manual) Cancelled 10/12/24 05:44 Prolymphocyte % Cancelled 10/12/24 05:44 Reactive Lymphs % (Man) Cancelled 10/12/24 05:44 Monocytes % (Manual) Cancelled 10/12/24 05:44 Eosinophils % (Manual) Cancelled 10/12/24 05:44 Basophils % (Manual) Cancelled 10/12/24 05:44 Metamyelocytes % (Man) Cancelled 10/12/24 05:44 Myelocytes % (Man) Cancelled 10/12/24 05:44 Promyelocytes % (Man) Cancelled 10/12/24 05:44 Blast Cells % (Manual) Cancelled 10/12/24 05:44 Plasma Cell % (Manual) Cancelled 10/12/24 05:44 Other Cells % Cancelled 10/12/24 05:44 Nucleated RBC % Cancelled 10/12/24 05:44 Neutrophils # (Manual) Cancelled 10/12/24 05:44 Band Neutrophils # Cancelled 10/12/24 05:44 Total Absolute Neuts Cancelled 10/12/24 05:44 Lymphocytes # (Manual) Cancelled 10/12/24 05:44 Prolymphocyte # Cancelled 10/12/24 05:44 Reactive Lymphs # Cancelled 10/12/24 05:44 Total Abs Lymphocytes Cancelled 10/12/24 05:44 Monocytes # (Manual) Cancelled 10/12/24 05:44 Eosinophils # (Manual) Cancelled 10/12/24 05:44 Basophils # (Manual) Cancelled 10/12/24 05:44 Metamyelocytes # (Man) Cancelled 10/12/24 05:44 Myelocytes # (Manual) Cancelled 10/12/24 05:44 Promyelocytes # (Man) Cancelled 10/12/24 05:44 Blast Cells # (Man) Cancelled 10/12/24 05:44 Plasma Cell # (Manual) Cancelled 10/12/24 05:44 Other Cells # Cancelled 10/12/24 05:44 Nucleated RBCs # (Man) Cancelled 10/12/24 05:44 Hypersegmented Neuts Cancelled 10/12/24 05:44 Hyposegmented Neuts Cancelled 10/12/24 05:44 Hypogranular Neuts Cancelled 10/12/24 05:44 Large Granular Lymphs Cancelled 10/12/24 05:44 # Lrg Granular Lymphs Cancelled 10/12/24 05:44 Hairy Cells Cancelled 10/12/24 05:44 Smudge Cells Cancelled 10/12/24 05:44 Toxic Granulation Cancelled 10/12/24 05:44 Toxic Vacuolation Cancelled 10/12/24 05:44 Dohle Bodies Cancelled 10/12/24 05:44 Tyesha Rods Cancelled 10/12/24 05:44 Platelet Estimate Cancelled 10/12/24 05:44 Hypogranular Platelets Cancelled 10/12/24 05:44 Giant Platelets Cancelled 10/12/24 05:44 Platelet Satelliting Cancelled 10/12/24 05:44 RBC Morphology Cancelled 10/12/24 05:44 Polychromasia Cancelled 10/12/24 05:44 Hypochromasia Cancelled 10/12/24 05:44 Poikilocytosis Cancelled 10/12/24 05:44 Basophilic Stippling Cancelled 10/12/24 05:44 Anisocytosis Cancelled 10/12/24 05:44 Microcytosis Cancelled 10/12/24 05:44 Macrocytosis Cancelled 10/12/24 05:44 Spherocytes Cancelled 10/12/24 05:44 Pappenheimer Bodies Cancelled 10/12/24 05:44 Sickle Cells Cancelled 10/12/24 05:44 Target Cells Cancelled 10/12/24 05:44 Tear Drop Cells Cancelled 10/12/24 05:44 Ovalocytes Cancelled 10/12/24 05:44 Stomatocytes Cancelled 10/12/24 05:44 [place] Bodies Cancelled 10/12/24 05:44 Echinocytes Cancelled 10/12/24 05:44 Acanthocytes (Spur) Cancelled 10/12/24 05:44 Rouleaux Cancelled 10/12/24 05:44 RBC Agglutinates Cancelled 10/12/24 05:44 Schistocytes Cancelled 10/12/24 05:44 Sezary Cell Cancelled 10/12/24 05:44 POC Sodium 140 mmol/L (135-144) 10/11/24 03:38 Sodium 140 mmol/L (136-145) 10/14/24 05:36 POC Potassium 3.3 mmol/L (3.3-5.0) 10/11/24 03:38 Potassium 3.8 mmol/L (3.5-5.1) 10/14/24 07:45 POC Chloride 104 mmol/L (101-112) 10/11/24 03:38 Chloride 104 mmol/L (98-107) 10/14/24 05:36 Carbon Dioxide 30 mmol/L (21-32) 10/14/24 05:36 POC Total CO2 23 mmol/L (24-31) L 10/11/24 03:38 Anion Gap 6 (3-11) 10/14/24 05:36 POC Anion Gap 17.0 mmol/L (16-25) 10/11/24 03:38 POC BUN 4 mg/dl (7-18) L 10/11/24 03:38 BUN 9 mg/dl (6-23) 10/14/24 05:36 Creatinine 1.00 mg/dl (0.6-1.4) 10/14/24 05:36 POC Creatinine 1.0 mg/dl (0.6-1.3) 10/11/24 03:38 Est Cr Clr Drug Dosing 104.0 ml/min 10/14/24 05:36 eGFR 89.44 10/14/24 05:36 BUN/Creatinine Ratio 9.0 (10-20) L 10/14/24 05:36 Glucose 86 mg/dl (70-99(Fasting)) 10/14/24 05:36 POC Glucose (other) 123 mg/dl (70-99) H 10/11/24 03:38 Estimat Average Glucose 105 mg/dl 10/12/24 05:44 Hemoglobin A1c 5.3 % (4.5-5.6) 10/12/24 05:44 Calcium 9.0 mg/dl (8.6-10.3) 10/14/24 05:36 POC Ioniz Calcium Rachana 1.14 mmol/l (1.12-1.32) 10/11/24 03:38 Magnesium 2.3 mg/dl (1.7-2.4) 10/13/24 05:36 Total Bilirubin 2.0 mg/dl (0.2-1.0) H D 10/14/24 05:36 Direct Bilirubin 2.0 mg/dl (0-0.2) H 10/12/24 07:03 AST 150 U/L (13-39) H 10/14/24 07:45 ALT 220 U/L (7-52) H 10/14/24 05:36 Alkaline Phosphatase 170 U/L (34-104) H 10/14/24 05:36 Troponin I High Sens 4.1 pg/ml (0-20) 10/11/24 03:25 Total Protein 6.8 gm/dl (6.0-8.3) 10/14/24 05:36 Albumin 3.4 gm/dl (3.4-5.0) 10/14/24 05:36 Globulin 3.4 gm/dl (2.5-4.0) 10/14/24 05:36 Albumin/Globulin Ratio 1.0 (0.9-2) 10/14/24 05:36 Lipase 28 U/L (11-82) 10/12/24 05:44 Urine Color Yellow 10/11/24 Unknown Urine Appearance Clear (Clear) 10/11/24 Unknown Urine pH 7.0 (4.5-7.5) 10/11/24 Unknown Ur Specific [place] 1.010 (1.000-1.030) 10/11/24 Unknown Urine Protein 1+ (Negative) H 10/11/24 Unknown Urine Glucose (UA) Negative (Negative) 10/11/24 Unknown Urine Ketones Negative (Negative) 10/11/24 Unknown Urine Blood Trace-intact (Negative) H 10/11/24 Unknown Urine Nitrite Negative (Negative) 10/11/24 Unknown Urine Bilirubin 2+ (Negative) H 10/11/24 Unknown Urine Urobilinogen Negative (Negative) 10/11/24 Unknown Ur Leukocyte Esterase Negative (Negative) 10/11/24 Unknown Urine RBC 0-2 /hpf (0-2) 10/11/24 Unknown Urine WBC 0-5 /hpf (0-5) 10/11/24 Unknown Ur Epithelial Cells 0-2 /hpf (0-2) 10/11/24 Unknown Urine Bacteria None Seen (None Seen) 10/11/24 Unknown Urine Mucus Present (None Prsent) A 10/11/24 Unknown Urine Comment 10/11/24 Unknown Blood Parasites ID Cancelled 10/12/24 05:44 Impressions Abdomen/Pelvis CT 10/11/24 03:25 EXAM: CT abd pelvis IV con only CLINICAL HISTORY: RUQ pain, cholecystitis vs appendicits TECHNIQUE: Contiguous axial images were obtained from the level of the diaphragm to the pubic symphysis with intravenous contrast. Coronal and sagittal reconstructions were likewise performed and indicated to increase the sensitivity for detecting clinically relevant pathology. If IV contrast material had not been administered, the likelihood of detecting abnormalities relevant to the patient's condition would have been substantially decreased. CT scan was performed according to ALARA (as low as reasonable achievable). COMPARISON: None FINDINGS: Few atelectatic bands are noted involving bilateral lung bases. The liver is normal in size and attenuation. No focal liver lesions are seen. There is minimal intrahepatic and extrahepatic biliary ductal dilatation. Hepatic vasculature is patent. The gallbladder is distended shows thickened edematous gallbladder wall (wall thickness measures 6-7 mm) and pericholecystic fat stranding. No obvious radio-opaque gallstones- ultrasound correlation is suggested. Tiny calcific focus seen in pancreatic head along common bile duct. The spleen, pancreas, and adrenal glands are unremarkable. The kidneys are normal in size and attenuation. There is no hydronephrosis or perinephric fat stranding. No renal calculi or renal masses are identified. The ureters are normal in caliber and no ureteral calculi are seen. The bladder is normal in contour. Pelvic viscera are unremarkable. No focal or diffuse bowel wall thickening or evidence of bowel obstruction is identified. The appendix is visualized in the right lower quadrant and appears within normal limits. Abdominal and pelvic vasculature is patent. No adenopathy or fluid collections are seen. No aggressive appearing osseous lesions are identified. IMPRESSION: 1. Gallbladder is distended shows thickened edematous gallbladder wall (wall thickness measures 6-7 mm) and pericholecystic fat stranding- suggestive of acute cholecystitis. Advised clinical correlation and ultrasound for further evaluation. 2. There is minimal intrahepatic and extrahepatic biliary ductal dilatation. Tiny calcific focus seen in pancreatic head along common bile duct. Advised MRCP correlation to confirm/rule out choledocholithiasis. 3. Hepatic steatosis Electronically signed by Neo Zelaya 10-11-2024 04:18 AM Cholangiopancreatography MRI 10/13/24 08:45 MR MRCP CLINICAL HISTORY: r/o retained stone COMPARISON STUDY: 10/11/2024 FINDINGS: There is motion artifact. There is a stable 4 mm filling defect at the mid to distal aspect of the common bile duct series 4 image 59. Common bile duct measures 5 mm in maximal diameter, nondilated. No gallstones seen. Stable mildly distended gallbladder with mild gallbladder wall thickening. 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 IMPRESSION: Stable 4 mm filling defect mid to distal aspect of the common bile duct without common ductal dilatation. This could represent a small common bile duct stone. ACT 112: Negative or not required by law. Electronically signed by: Scot George M.D. 10/13/2024 1:10 PM Hospital Course (1) Cholecystitis: 53-year-old male unassigned patient with past medical history significant for hypertension, depression comes with abdominal pain. Patient states having epigastric and right upper quadrant abdominal pain going on for last couple of days. Pain is radiating to the back. Associate with nausea. No vomiting. Had some loose stools. Denies any blood in the stools or black stools. Micturating okay. Thinks he had fevers. Denies any chest pain. Some shortness of breath when the pain is severe. Denies any headache. No runny nose or sore throat or cough. Resting comfortably and hemodynamics are okay currently. Sepsis--POA Acute cholecystitis Choledocholithiasis with biliary obstruction Hepatic steatosis --CT ABD:Gallbladder is distended shows thickened edematous gallbladder wall (wall thickness measures 6-7 mm) and pericholecystic fat stranding- suggestive of acute cholecystitis. Advised clinical correlation and ultrasound for further evaluation. There is minimal intrahepatic and extrahepatic biliary ductal dilatation. Tiny calcific focus seen in pancreatic head along common bile duct. Advised MRCP correlation to confirm/rule out choledocholithiasis. Hepatic steatosis --MRCP:4 mm filling defect within the mid common bile duct which corresponds to calcified density on CT. This represents a small common bile duct calculus. No additional common bile duct calculi. Mild prominence of intrahepatic bile ducts. Normal caliber common bile duct. Findings suggestive of acute cholecystitis. --S/P ERCP:ERCP with stone extraction from the common bile duct. Sphincterotomy. --S/P Repeat ERCP:Stable 4 mm filling defect mid to distal aspect of the common bile duct without common ductal dilatation. This could represent a small common bile duct stone. -- Blood cultures: No growth to date -- Continue IV Zosyn>> transition to oral antibiotics upon discharge --Monitor LFTs, avoid hepatotoxic agents as able --Received IV fluids --Appreciate GI, surgery input --Advance diet as tolerated Needs follow-up with surgery (for cholecystectomy )and GI (stent removal ) upon discharge Hypertension BP elevated initially likely situational--resolved Continue atenolol IV hydralazine as needed Monitor blood pressure Stable Depression Continue Zoloft Hyperglycemia HbA1c 5.3 Hypokalemia Replete electrolytes as needed Monitor DVT prophylaxis SCDs Encourage to ambulate CODE STATUS Full code Disposition Home Total Time Total Time Spent Total Time Spent (In Minutes): 55 minutes Discharge Plan Discharge Items Patient Disposition: Home - Self-Care Reason For Visit: CHOLECYSTITIS, ELEVATED LFT Discharge Diagnosis: Sepsis Acute cholecystitis Choledocholithiasis with biliary obstruction Condition on Discharge: Fair Activity: Per Instructions section Exercise/Sports: Gradually increase as tolerated Non-emergency contact: Primary Care Provider, Surgeon and Head Operator Call non-emergency contact if: you have any medication questions, your symptoms worsen, your pain is concerning for you and you have a fever Follow-up/Referrals: Ellie Velazquez DO [Primary Care Provider] - 10/17/24 2:00 pm Diet: Low Fat Addtl Attending Provider Instructions: -- Follow-up with your primary care physician on 10/17/24 at 2:00PM as scheduled -- Follow-up with your service advocate contact Dr.Ernest David in 3 to 4 weeks for stent removal --Follow-up with your surgeon Dr. Maxim Larkin for cholecystectomy as recommended -- Complete the antibiotic course (ciprofloxacin, Flagyl) as recommended by your service advocate contact -- Your final blood cultures are pending at the time of discharge. Follow-up with your physician for results. Seek immediate medical attention if your symptoms reoccur or worsen Please review medication list provided on discharge for any medication changes as instructed. Please call if you have any questions or problems. You can reach a [facility] hospitalist on duty at [facility] 24 hours a day by calling [phone] Pending Studies at Discharge: Yes Studies:: Blood Cultures Stand-Alone Forms: My [facility], Work/School Release, Smoking Cess ation Medications and DC Order Prescriptions: New ciprofloxacin HCl 500 mg tablet 500 mg PO BID Qty: 14 0RF metronidazole 500 mg tablet 500 mg PO Q8H 7 Days Qty: 21 0RF oxycodone 5 mg tablet 5 mg PO Q8H PRN (Reason: pain) Qty: 10 0RF Continued atenolol 25 mg Tablet 25 mg PO DAILY sertraline [Zoloft] 50 mg Tablet 50 mg PO DAILY Discharge Orders: Discharge Order (Routine); Ordered 10/14/24 Ordered By: Damian Delacruz Admission Data Admit Date/Time: 10/11/24 08:36 Attending Provider: Damian Delacruz Admit Provider: Adolfo Palmer Primary Care Provider: Ellie Velazquez Other Providers: Adolfo Palmer; Robb Elam; Yobany Armas
== END 2024-10-14 13:16 | disposition home or self-care (01) | DRG 872 ==
LOC: ED 03:15 → EDINP 07:52 → 3E 16:18